=== PATIENT | male | born 1935 | race Hispanic/Latino ===

== ENCOUNTER 2019-02-25 13:44 | Observation (INO) | payer MEDICARE ==
--- NOTE | 2019-02-25 14:27 | RAD ---
EXAM: Chest 2 views: HISTORY: Hypotension and cough COMPARISON: 06/10/2013 FINDINGS: There is a normal-sized cardiomediastinal silhouette. Increased interstitial markings are present. There is no evidence of consolidation, mass, or pleural effusion. The bones are unremarkable. IMPRESSION: No evidence of acute cardiopulmonary disease
[2019-02-25 14:41] LABS: #Eosinphils 0.1 thou/uL (0.0-0.7); #Lymphocytes 3.4 thou/uL (1.20-3.40); #Monocytes 1.1 thou/uL (0.11-0.59); %Basophils 0.3 % (0.0-1.0); %Eosinophils 0.9 % (0.0-10.0); %Lymphocytes 26.8 % (21.0-51.0); %Monocytes 8.7 % (0.0-10.0); %Neutrophils 63.4 % (42.0-75.0); Hemoglobin 13.9 g/dL (14.0-18.0); Mean Corpuscular HGB CONC 33.1 g/dL (32.0-36.0); Mean Corpuscular Hemoglobin 28.1 pg (27.0-31.0); Mean Corpuscular Volume 84.8 fL (78.0-98.0); Mean Platelet Volume 8.9 fL (7.4-10.4); Platelet Count 243 thou/uL (130-400); RBC Distribution Width 13.3 % (11.5-14.5); Red Blood Cell (RBC) Count 4.96 mill/uL (4.70-6.10); White Blood Cell (WBC) Count 12.6 thou/uL (4.8-10.8)
[2019-02-25 15:01] LABS: ALT (SGPT) 19 U/L (8-55); AST (SGOT) 30 U/L (5-34); Albumin 4.2 g/dL (3.4-4.8); Alkaline Phosphatase 85 U/L (40-150); Anion Gap 14 mmol/L (10-20); BUN (Urea Nitrogen) 46 mg/dL (8.4-25.7); Bilirubin, Total 0.6 mg/dL (0.2-1.2); Calc. Creatinine Clearance 0 mL/min (70-130); Calcium 9.8 mg/dL (7.8-10.44); Carbon Dioxide 25 mmol/L (23-31); Chloride 100 mmol/L (98-107); Estimated GFR-MDRD 25; Glucose 95 mg/dL (83-110); Potassium 4.5 mmol/L (3.5-5.1); Protein, Total 8.2 g/dL (5.8-8.1); Sodium 134 mmol/L (136-145)
[2019-02-25] MEDS ORDERED: Lidocaine Viscous Sol 2% 15 ml UD Cup ONE (15:48)
[2019-02-25] MEDS ORDERED: Mag-Al 1200 mg/1200 mg/30 ML UDCUP ONE (15:48)
[2019-02-25 16:21] LABS: Bacteria/HPF None Seen HPF (None Seen); Bilirubin Negative (Negative); Blood, Urine Negative (Negative); Clarity Turbid (Clear); Glucose, Urine (Dipstick) Normal (Negative); Leukocyte Negative Leu/uL (Negative); Nitrite Negative (Negative); Protein, Urine (Dipstick) 30 mg/dL (Neg-Trace); RBC/HPF 0-3 HPF (0-3); Squamous Epithelial 0-3 HPF (0-3); WBC/HPF 0-3 HPF (0-3)
[2019-02-25 16:27] LABS: Calcium Oxalate Crystals 1+ HPF (None Seen); Mucous/LPF 2+ LPF (<2+)
[2019-02-25] MEDS ORDERED: PROVENTIL INHALER 6.7 G (200 INHALATIONS) INH PRN (16:52)
[2019-02-25] MEDS ORDERED: cefTRIAXone\\ROCEPHIN 1 GM in Sodium Chloride 0.9% 100 ML IVPB SCH ×2 (18:00→21:00)
[2019-02-25 19:47] VITALS: BMI 21.9
[2019-02-25] MEDS: Sodium Chloride 0.9% 1,000 ML IV SCH (20:13)
--- NOTE | 2019-02-26 00:18 | HP ---
CHIEF COMPLAINT: Sore throat. HISTORY OF PRESENT ILLNESS: This patient is an 83-year-old male without significant past medical history other than hypertension and some chronic abnormalities on his lung exam, who presented via the emergency department. 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 He developed sore throat over the last couple of days and presented to work today, but ultimately decided he needed to leave, because of some irritation of his throat. He went home and checked his blood pressure and it was very low; however he says he does not necessarily trust his machine at this point. He subsequently presented to his provider's office where his pressure was in the 80s as well and ambulance was called to bring the patient to the emergency department. Here, the patient's blood pressure has actually been normal. He says he actually feels fine other than the sore throat. REVIEW OF SYSTEMS: All other systems reviewed, all pertinent positives and negatives noted in the history of present illness. Specifically, the patient denies any fevers, chills or shortness of breath. He reports that he has been eating and drinking well and continues to drink ample amounts of fluids every day. PAST MEDICAL HISTORY: Notable for hypertension. He also reports that he has had abnormal lung sounds for the past 60 years, primarily on the right side. He does report having pneumonia 6-7 months ago. PAST SURGICAL HISTORY: He has had cataractectomy. FAMILY HISTORY: Father about 15 years ago of an [place]. His mother when he was 6 and he believes she had TB. SOCIAL HISTORY: He drinks 2 to 3 beers per day. Denies tobacco or drugs. He is . He is full code. ALLERGIES: NONE. CURRENT MEDICATIONS: 1. Lisinopril 20 mg daily. 2. Albuterol inhaler 2 puffs p.r.n. PHYSICAL EXAMINATION: VITAL SIGNS: Blood pressure is 134/64, pulse is 80, respirations 20, temperature is 97.8, O2 saturations 96% on room air. GENERAL APPEARANCE: Age-appropriate male in no distress. He is awake and alert, very pleasant and cooperative. HEENT: LAWANDA. 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 Has no OP lesions. NECK: Supple and symmetric without lymphadenopathy, JVD, or carotid bruits. HEART: Regular rate and rhythm without murmurs, gallops, or rubs. LUNGS: Clear to auscultation bilaterally with good chest wall expansion and air exchange. ABDOMEN: Soft, nontender, and nondistended. Positive bowel sounds. No masses. No organomegaly. EXTREMITIES: No cyanosis, clubbing, or edema. NEUROLOGIC: Intact with no focal deficits. PSYCHIATRIC: Normal affect and behavior. LABORATORY DATA: White count 12.6, hemoglobin 13.9, platelets 243, normal differential. Sodium 134, potassium 4.5, chloride 100, CO2 of 25, BUN 46, creatinine is 2.45, glucose 95, lactic acid 0.9, calcium 9.8. LFTs normal. Albumin is 4.2. Urinalysis shows a specific gravity of 1.021 with trace protein, 1+ calcium oxalate crystals, some hyaline casts greater than 50 noted and some mucus. IMAGING: Chest x-ray is negative. EKG is negative. IMPRESSION AND PLAN: 1. Acute renal failure, unclear etiology, but certainly concerning. The patient may have had some acute tubular necrosis given the extent of the hyaline casts that are present. He is unaware of having any prior renal problems. We have no prior labs for comparison. The patient was in the hospital 6 to 7 months ago and apparently was not told anything at that time about any renal issues. We will hydrate him today and recheck these values in the morning. It is possible he has just been suffering from some chronic dehydration working outside in the extreme heat. 2. Abnormal lung exam. The patient has rales on the right side, which are fairly prominent; however, he is adamant that this has been the case for decades and has not been problematic for him. He does have an inhaler, but does not think he has ever been diagnosed with asthma, but does not really think he has chronic obstructive pulmonary disease either. He has never been a smoker. We will repeat the chest x-ray in the morning after hydration just to ensure there is not something more going on. 3. History of hypertension, holding his lisinopril in light of his renal function and the hypotensive episode this morning. 4. Hypotension was fully resolved prior to arriving in the emergency department, not clear what changed, the patient feels fine. His pressures been stable here in the ER. He is given some fluids. We will hold his antihypertensives and continue to monitor. 5. Mild pharyngitis. Given the episode of the hypotension today and the modest elevation of his white blood cell count, we will go ahead and cover him with some antibiotics. Job ID: [id number]
[2019-02-26] MEDS: Sodium Chloride 0.9% 1,000 ML IV SCH (06:04)
[2019-02-26 08:10] LABS: #Eosinphils 0.1 thou/uL (0.0-0.7); #Lymphocytes 2.4 thou/uL (1.20-3.40); #Monocytes 0.7 thou/uL (0.11-0.59); #Neutrophils 4.5 thou/uL (1.40-6.50); %Basophils 0.6 % (0.0-1.0); %Eosinophils 1.8 % (0.0-10.0); %Lymphocytes 31.1 % (21.0-51.0); %Monocytes 8.9 % (0.0-10.0); %Neutrophils 57.6 % (42.0-75.0); Hemoglobin 12.6 g/dL (14.0-18.0); Mean Corpuscular Hemoglobin 28.1 pg (27.0-31.0); Mean Corpuscular Volume 85.1 fL (78.0-98.0); Mean Platelet Volume 8.4 fL (7.4-10.4); Platelet Count 199 thou/uL (130-400); RBC Distribution Width 13.3 % (11.5-14.5); Red Blood Cell (RBC) Count 4.49 mill/uL (4.70-6.10); White Blood Cell (WBC) Count 7.8 thou/uL (4.8-10.8)
[2019-02-26 08:38] LABS: Anion Gap 8 mmol/L (10-20); BUN (Urea Nitrogen) 24 mg/dL (8.4-25.7); Calc. Creatinine Clearance 54 mL/min (70-130); Calcium 8.8 mg/dL (7.8-10.44); Carbon Dioxide 27 mmol/L (23-31); Chloride 105 mmol/L (98-107); Estimated GFR-MDRD 83; Glucose 99 mg/dL (83-110); Potassium 4.8 mmol/L (3.5-5.1); Sodium 135 mmol/L (136-145)
[2019-02-26] MEDS ORDERED: PROVENTIL INHALER 6.7 G (200 INHALATIONS) INH PRN (09:33)
--- NOTE | 2019-02-26 10:05 | RAD ---
PA AND LATERAL CHEST: Date: 02/26/19 HISTORY: Rales in right lung base. COMPARISON: Prior day's study. FINDINGS: Heart size within normal limits. There are atherosclerotic changes of the aorta. 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 No confluent infiltrative process. IMPRESSION: Chronic lung change. Stable chest. POS: [facility]
[2019-02-26 10:45] VITALS: BP 144/63; TEMP 98.1
--- NOTE | 2019-02-27 03:02 | DIS ---
DATE OF ADMISSION: 02/25/2019 DATE OF DISCHARGE: 02/26/2019 DISCHARGE DIAGNOSES: As of the following; 1. Acute kidney injury. 2. Sore throat. 3. Abnormal lung exam. HOSPITAL COURSE: The patient is a very pleasant 83-year-old male, with no significant past medical history other than just hypertension, who presented to the hospital with complaints of sore throat. 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 The patient states that he has been having some irritation of his throat for the past few days and when he went home his checked his blood pressure, his blood pressure was found to be low, so he came into the hospital for further evaluation. In the ER, his blood pressure was stable; however, he was found to have an elevated creatinine. The patient's creatinine was 2.45. He was resuscitated with IV hydration. His creatinine on discharge was 0.88. His BNP was 84. Troponin x1 was negative. The patient stated he felt really well. His sore throat had improved. He also had given him antibiotics. PHYSICAL EXAMINATION: VITAL SIGNS: Temperature 98.1, 60, 20, 144/63. GENERAL: He is awake, alert, and oriented x3. Does not appear in any distress. HEENT: Normocephalic, atraumatic. Pupils are equal and reactive to light. Upon examination of the oropharynx, no erythema or swelling was noted. No lymphadenopathy noted. LUNGS: Clear upon auscultation of his bilateral lower lung areas. HOME MEDICATIONS: As of the following; 1. Norvasc 5 mg daily. 2. Keflex 500 mg b.i.d. 3. Multivitamin 1 p.o. daily. PLAN: I have told him to hold off on his lisinopril and we will recheck his lab work on Friday and in the meantime, he will use his Norvasc as needed if his blood pressure goes above 170. Also, asked him to follow up with his primary care doctor. I encouraged him to hydrate. If his symptoms of sore throat does not improve, he might need either ENT or GI. I have told the patient that if he has problems swallowing and continues to have more weight loss, he will need to follow up with GI and also with his primary care. Job ID: [id number]
== END 2019-02-26 11:06 | disposition home or self-care (01) ==
LOC: ERS 13:44 → T4-A 19:05
PROVIDERS: ADMIT Internal Medicine; ATTEND Internal Medicine
DX: N17.9 Acute kidney failure, unspecified (principal); J02.9 Acute pharyngitis, unspecified; I10 Essential (primary) hypertension; R09.89 Other specified symptoms and signs involving the circulatory and respiratory systems; Z79.899 Other long term (current) drug therapy
CPT/HCPCS: 71046 ×2; 80048; 80053; 83605; 83880; 84484; 85025 ×2; 93005; 96361 ×3; 96365; 99285; G0378 ×3; 36415; 81003; 81015; 96360; J0696; J3490

== ENCOUNTER 2022-04-15 09:56 | Inpatient (IN) | payer MEDICARE, OTHER ==
[2022-04-15 11:07] LABS: #Monocytes 1.5 thou/uL (0.11-0.59); #Neutrophils 14.3 thou/uL (1.40-6.50); %Lymphocytes 11.2 % (21.0-51.0); %Monocytes 8.2 % (0.0-10.0); %Neutrophils 80.5 % (42.0-75.0); Hemoglobin 12.7 g/dL (14.0-18.0); Mean Corpuscular HGB CONC 31.4 g/dL (32.0-36.0); Mean Corpuscular Hemoglobin 26.7 pg (27.0-31.0); Mean Corpuscular Volume 84.9 fL (78.0-98.0); Mean Platelet Volume 9.1 fL (7.4-10.4); Platelet Count 191 thou/uL (130-400); RBC Distribution Width 13.7 % (11.5-14.5); Red Blood Cell (RBC) Count 4.78 mill/uL (4.70-6.10); White Blood Cell (WBC) Count 17.7 thou/uL (4.8-10.8)
[2022-04-15 11:29] LABS: ALT (SGPT) 33 U/L (8-55); AST (SGOT) 168 U/L (5-34); Albumin 3.2 g/dL (3.4-4.8); Alkaline Phosphatase 87 U/L (40-110); Anion Gap 13 mmol/L (10-20); BUN (Urea Nitrogen) 23 mg/dL (8.4-25.7); Bilirubin, Total 0.5 mg/dL (0.2-1.2); Calc. Creatinine Clearance 0 mL/min (70-130); Calcium 8.4 mg/dL (7.8-10.44); Carbon Dioxide 24 mmol/L (23-31); Chloride 100 mmol/L (98-107); Estimated GFR 54; Globulin 4.5 g/dL (2.4-3.5); Glucose 100 mg/dL (83-110); Protein, Total 7.7 g/dL (5.8-8.1); Sodium 133 mmol/L (136-145)
[2022-04-15 11:44] LABS: Bilirubin Negative (Negative); Blood, Urine 3+ (Negative); Clarity Clear (Clear); Glucose, Urine (Dipstick) Normal (Negative); Ketone, Urine 20 mg/dL (Negative); Leukocyte Negative Leu/uL (Negative); Nitrite Negative (Negative); Protein, Urine (Dipstick) 70 mg/dL (Neg-Trace); RBC/HPF 0-3 HPF (0-3); Squamous Epithelial 0-3 HPF (0-3); Urobilinogen Normal mg/dL (Less than 2); WBC/HPF 0-3 HPF (0-3); pH, Urine 5.5 (5.0-9.0)
[2022-04-15 11:47] LABS: Bacteria/HPF 1+ HPF (None Seen)
[2022-04-15 12:14] LABS: SARS-CoV-2 NAA Rapid Test Not Detected (NotDetected)
[2022-04-15 12:32] LABS: CKMB 22.5 ng/mL (0-6.6)
[2022-04-15] MEDS ORDERED: Aspirin Chewable 81 MG TAB ONE (12:48)
[2022-04-15] MEDS ORDERED: cefTRIAXone\\ROCEPHIN 2 GM VIAL ONE (12:48)
[2022-04-15] MEDS ORDERED: Ondansetron PF 4 MG/2 ML Vial IVP PRN (13:29)
[2022-04-15] MEDS ORDERED: Nitroglycerin 0.4 MG TAB (25 Tab Bottle) SL PRN (13:29)
[2022-04-15] MEDS ORDERED: Azithromycin 500 MG VIAL ONE (13:32)
[2022-04-15] MEDS ORDERED: Heparin 10,000 UNITS/ 10 ML VIAL ONE (13:51)
[2022-04-15] MEDS ORDERED: Heparin 25,000 units/D5W 500 ML ONE (13:52)
[2022-04-15] MEDS ORDERED: Levalbuterol HCl 0.63 MG/3 ML NEB NEB PRN (13:57)
[2022-04-15 14:42] LABS: INR-International Normal Ratio 1.3; PTT 41.6 sec (22.9-36.1); Prothrombin Time 16.2 sec (12.0-14.7)
[2022-04-15 14:46] LABS: Magnesium 1.9 mg/dL (1.6-2.6)
[2022-04-15] MEDS ORDERED: Albuterol Sulfate 1.25 MG/3 ML NEB NEB PRN (14:48)
[2022-04-15 14:49] LABS: Critical Call Chem Troponin I RESULT DECREASING; Troponin I 29.086 ng/mL (< 0.028)
[2022-04-15 14:57] LABS: Hemoglobin 11.8 g/dL (14.0-18.0); Platelet Count 171 thou/uL (130-400)
[2022-04-15] MEDS ORDERED: Sodium Chloride 0.9% 1,000 ML IV SCH (15:15)
[2022-04-15 17:41] LABS: Troponin I 30.538 ng/mL (< 0.028)
[2022-04-15] MEDS: Heparin 10,000 UNITS/ 10 ML VIAL SLOW IVP SCH (22:28)
[2022-04-15] MEDS: guaiFENesin ER 600 MG TAB PO SCH (22:31)
[2022-04-15] MEDS: Atorvastatin Calcium 10 MG TAB PO SCH (22:31)
[2022-04-15] MEDS: Doxycycline 100 MG in Sodium Chloride 0.9% 100 ML IVPB SCH (22:32)
[2022-04-15 23:34] VITALS: BMI 21.9
[2022-04-16 00:01] LABS: Legionella Urinary Ag Negative (Negative); Strep pneumo Urine Ag NEGATIVE (NEGATIVE)
[2022-04-16 04:40] LABS: #Lymphocytes 3.3 thou/uL (1.20-3.40); #Monocytes 1.5 thou/uL (0.11-0.59); #Neutrophils 6.5 thou/uL (1.40-6.50); %Basophils 0.3 % (0.0-1.0); %Eosinophils 0.2 % (0.0-10.0); %Lymphocytes 29.1 % (21.0-51.0); %Monocytes 13.2 % (0.0-10.0); %Neutrophils 57.1 % (42.0-75.0); Hemoglobin 11.4 g/dL (14.0-18.0); Mean Corpuscular HGB CONC 31.5 g/dL (32.0-36.0); Mean Corpuscular Hemoglobin 26.9 pg (27.0-31.0); Mean Corpuscular Volume 85.5 fl (78.0-98.0); Mean Platelet Volume 9.5 fL (7.4-10.4); Platelet Count 149 thou/uL (130-400); RBC Distribution Width 13.7 % (11.5-14.5); Red Blood Cell (RBC) Count 4.23 mill/uL (4.70-6.10); White Blood Cell (WBC) Count 11.4 thou/uL (4.8-10.8)
[2022-04-16 05:10] LABS: Anion Gap 12 mmol/L (10-20); BUN (Urea Nitrogen) 17 mg/dL (8.4-25.7); Calc. Creatinine Clearance 54 mL/min (70-130); Carbon Dioxide 21 mmol/L (23-31); Chloride 104 mmol/L (98-107); Estimated GFR 86; Potassium 3.9 mmol/L (3.5-5.1); Sodium 133 mmol/L (136-145)
[2022-04-16 05:11] LABS: ALT (SGPT) 24 U/L (8-55); AST (SGOT) 108 U/L (5-34); Albumin 2.6 g/dL (3.4-4.8); Alkaline Phosphatase 74 U/L (40-110); Bilirubin, Total 0.4 mg/dL (0.2-1.2); Cardiac Risk 2.9 (Less than 4.5); Cholesterol 97 mg/dl (< 200 Desired); Globulin 3.6 g/dL (2.4-3.5); Glucose 99 mg/dL (83-110); HDL Cholesterol 33 mg/dL (>60 Neg Risk); LDL Cholesterol, Calculated 56 mg/dL; Protein, Total 6.2 g/dL (5.8-8.1); Triglycerides 40 mg/dL (Less than 150)
[2022-04-16] MEDS: Heparin 10,000 UNITS/ 10 ML VIAL SLOW IVP SCH (05:39)
[2022-04-16] MEDS ORDERED: FLU VACC QS2022-23(65YR UP)/PF 240 MCG/0.7 ML SYRINGE IM ONE (09:00)
[2022-04-16] MEDS: guaiFENesin ER 600 MG TAB PO SCH ×2 (09:08→20:26)
[2022-04-16] MEDS: Aspirin 325 mg Enteric Coated Tablet PO SCH (09:08)
[2022-04-16] MEDS: Acetaminophen 325 MG TAB PO PRN ×2 (09:55→20:26)
[2022-04-16] MEDS: Doxycycline 100 MG in Sodium Chloride 0.9% 100 ML IVPB SCH (10:28)
[2022-04-16] MEDS: cefTRIAXone\\ROCEPHIN 1 GM in Sodium Chloride 0.9% 100 ML IVPB SCH (15:15)
[2022-04-16] MEDS: Azithromycin 500 MG in Sodium Chloride 0.9% 250 ML 250 ML IVPB SCH (15:15)
[2022-04-16] MEDS: Lisinopril 10 MG TAB PO SCH (20:26)
[2022-04-16] MEDS: Atorvastatin Calcium 10 MG TAB PO SCH (20:26)
[2022-04-16] MEDS: Heparin 25,000 units/D5W 500 ML IVPB SCH (22:49)
[2022-04-17 04:54] LABS: #Lymphocytes 2.5 thou/uL (1.20-3.40); #Monocytes 1.1 thou/uL (0.11-0.59); #Neutrophils 5.7 thou/uL (1.40-6.50); %Monocytes 11.6 % (0.0-10.0); %Neutrophils 61.4 % (42.0-75.0); Hemoglobin 11.5 g/dL (14.0-18.0); Mean Corpuscular HGB CONC 31.2 g/dL (32.0-36.0); Mean Corpuscular Hemoglobin 26.7 pg (27.0-31.0); Mean Corpuscular Volume 85.4 fl (78.0-98.0); Platelet Count 142 thou/uL (130-400); RBC Distribution Width 13.8 % (11.5-14.5); Red Blood Cell (RBC) Count 4.32 mill/uL (4.70-6.10); White Blood Cell (WBC) Count 9.3 thou/uL (4.8-10.8)
[2022-04-17 05:17] LABS: ALT (SGPT) 24 U/L (8-55); AST (SGOT) 74 U/L (5-34); Albumin 2.6 g/dL (3.4-4.8); Alkaline Phosphatase 89 U/L (40-110); Anion Gap 10 mmol/L (10-20); BUN (Urea Nitrogen) 14 mg/dL (8.4-25.7); Bilirubin, Total 0.4 mg/dL (0.2-1.2); Calc. Creatinine Clearance 54 mL/min (70-130); Calcium 8.1 mg/dL (7.8-10.44); Carbon Dioxide 23 mmol/L (23-31); Chloride 104 mmol/L (98-107); Estimated GFR 86; Globulin 3.8 g/dL (2.4-3.5); Glucose 109 mg/dL (83-110); Potassium 3.8 mmol/L (3.5-5.1); Protein, Total 6.4 g/dL (5.8-8.1); Sodium 133 mmol/L (136-145)
[2022-04-17] MEDS: Acetaminophen 325 MG TAB PO PRN ×2 (07:45→21:29)
[2022-04-17] MEDS: Oseltamivir 75 MG CAP PO SCH ×2 (10:23→21:29)
[2022-04-17] MEDS: Aspirin 325 mg Enteric Coated Tablet PO SCH (10:23)
[2022-04-17] MEDS: guaiFENesin ER 600 MG TAB PO SCH ×2 (10:23→21:29)
[2022-04-17] MEDS: Lisinopril 10 MG TAB PO SCH ×2 (10:23→21:29)
[2022-04-17] MEDS: Azithromycin 500 MG in Sodium Chloride 0.9% 250 ML 250 ML IVPB SCH (15:20)
[2022-04-17] MEDS: cefTRIAXone\\ROCEPHIN 1 GM in Sodium Chloride 0.9% 100 ML IVPB SCH (15:20)
[2022-04-17] MEDS ORDERED: Furosemide 20 MG/2 ML VIAL SLOW IVP SCH (16:45)
[2022-04-17] MEDS: Carvedilol 3.125 MG TAB PO SCH (17:20)
[2022-04-17] MEDS: Atorvastatin Calcium 10 MG TAB PO SCH (21:29)
[2022-04-17] MEDS: Heparin 25,000 units/D5W 500 ML IVPB SCH (21:30)
[2022-04-18 03:23] LABS: #Lymphocytes 2.6 thou/uL (1.20-3.40); %Basophils 0.2 % (0.0-1.0); %Eosinophils 0.3 % (0.0-10.0); %Lymphocytes 30.1 % (21.0-51.0); %Monocytes 11.5 % (0.0-10.0); %Neutrophils 57.8 % (42.0-75.0); Hemoglobin 11.1 g/dL (14.0-18.0); Mean Corpuscular HGB CONC 32.1 g/dL (32.0-36.0); Mean Corpuscular Hemoglobin 27.6 pg (27.0-31.0); Mean Corpuscular Volume 86.1 fl (78.0-98.0); Mean Platelet Volume 9.1 fL (7.4-10.4); Platelet Count 140 thou/uL (130-400); RBC Distribution Width 13.7 % (11.5-14.5); White Blood Cell (WBC) Count 8.7 thou/uL (4.8-10.8)
[2022-04-18 03:41] LABS: PTT 127.9 sec (22.9-36.1)
[2022-04-18 03:42] LABS: Anion Gap 11 mmol/L (10-20); BUN (Urea Nitrogen) 16 mg/dL (8.4-25.7); Calc. Creatinine Clearance 54 mL/min (70-130); Carbon Dioxide 23 mmol/L (23-31); Chloride 100 mmol/L (98-107); Estimated GFR 86; Glucose 105 mg/dL (83-110); Magnesium 1.8 mg/dL (1.6-2.6); Potassium 3.5 mmol/L (3.5-5.1); Sodium 130 mmol/L (136-145)
[2022-04-18] MEDS ORDERED: Communication Order-Pharmacy FS SCH (08:30)
[2022-04-18] MEDS ORDERED: Potassium Chloride 20 MEQ TAB PO SCH (09:00)
[2022-04-18] MEDS: Oseltamivir 75 MG CAP PO SCH ×2 (09:42→21:15)
[2022-04-18] MEDS: Carvedilol 3.125 MG TAB PO SCH ×2 (09:42→17:22)
[2022-04-18] MEDS: Lisinopril 10 MG TAB PO SCH ×2 (09:42→21:15)
[2022-04-18] MEDS: Aspirin 325 mg Enteric Coated Tablet PO SCH (09:42)
[2022-04-18] MEDS: guaiFENesin ER 600 MG TAB PO SCH ×2 (09:42→21:18)
[2022-04-18] MEDS: Heparin 10,000 UNITS/ 10 ML VIAL SLOW IVP SCH (13:47)
[2022-04-18] MEDS: Azithromycin 500 MG in Sodium Chloride 0.9% 250 ML 250 ML IVPB SCH (13:48)
[2022-04-18] MEDS: cefTRIAXone\\ROCEPHIN 1 GM in Sodium Chloride 0.9% 100 ML IVPB SCH (13:48)
[2022-04-18] MEDS: Atorvastatin Calcium 10 MG TAB PO SCH (21:15)
[2022-04-19 04:57] LABS: #Eosinphils 0.1 thou/uL (0.0-0.7); #Lymphocytes 3.2 thou/uL (1.20-3.40); #Neutrophils 3.1 thou/uL (1.40-6.50); %Eosinophils 1.5 % (0.0-10.0); %Lymphocytes 43.6 % (21.0-51.0); %Neutrophils 41.9 % (42.0-75.0); Hemoglobin 10.6 g/dL (14.0-18.0); Mean Corpuscular HGB CONC 30.8 g/dL (32.0-36.0); Mean Corpuscular Hemoglobin 26.3 pg (27.0-31.0); Mean Corpuscular Volume 85.4 fl (78.0-98.0); Platelet Count 155 thou/uL (130-400); RBC Distribution Width 13.7 % (11.5-14.5); Red Blood Cell (RBC) Count 4.04 mill/uL (4.70-6.10); White Blood Cell (WBC) Count 7.4 thou/uL (4.8-10.8)
[2022-04-19 05:15] LABS: Anion Gap 10 mmol/L (10-20); BUN (Urea Nitrogen) 16 mg/dL (8.4-25.7); Calc. Creatinine Clearance 54 mL/min (70-130); Calcium 8.2 mg/dL (7.8-10.44); Carbon Dioxide 23 mmol/L (23-31); Chloride 101 mmol/L (98-107); Estimated GFR 86; Glucose 92 mg/dL (83-110); Potassium 3.8 mmol/L (3.5-5.1); Sodium 130 mmol/L (136-145)
[2022-04-19] MEDS ORDERED: Sodium Chloride 0.9% 1,000 ML IV SCH ×2 (06:00→09:31)
[2022-04-19] MEDS: Heparin 25,000 units/D5W 500 ML IVPB SCH (06:04)
[2022-04-19] MEDS ORDERED: Heparin 10,000 UNITS/ 10 ML VIAL ONE (07:35)
[2022-04-19] MEDS ORDERED: Midazolam HCl 2 mg/2 ml Vial ONE (07:35)
[2022-04-19] MEDS ORDERED: FENTANYL 50 MCG/ML 1 ML VIAL ONE (07:35)
[2022-04-19] MEDS ORDERED: Nitroglycerin 100MG/250ML BOT 0 ML ONE (07:35)
[2022-04-19] MEDS ORDERED: Lidocaine 1% (PF) 30 ML VIAL ONE (07:35)
[2022-04-19] MEDS ORDERED: Protamine Sulfate 50 MG/5 ML VIAL ONE (09:20)
[2022-04-19] MEDS ORDERED: Sodium Chloride 0.9% 200 ML IV PRN (09:29)
[2022-04-19] MEDS ORDERED: Acetaminophen/Codeine 30-300mg Tablet PO PRN ×2 (09:29)
[2022-04-19] MEDS ORDERED: Nitroglycerin 0.4 MG TAB (25 Tab Bottle) SL PRN (09:29)
[2022-04-19] MEDS ORDERED: Communication Order-Pharmacy FS SCH ×2 (09:31→09:34)
[2022-04-19] MEDS ORDERED: Iopamidol 370 76% 100 ML VIAL ONE (09:53)
[2022-04-19] MEDS: Aspirin 325 mg Enteric Coated Tablet PO SCH (10:24)
[2022-04-19] MEDS: guaiFENesin ER 600 MG TAB PO SCH ×2 (10:24→21:43)
[2022-04-19] MEDS: Lisinopril 10 MG TAB PO SCH ×2 (10:24→21:43)
[2022-04-19] MEDS: Oseltamivir 75 MG CAP PO SCH ×2 (10:25→21:43)
[2022-04-19] MEDS: Carvedilol 3.125 MG TAB PO SCH ×2 (10:35→17:19)
[2022-04-19 10:40] LABS: Hemoglobin 11.6 g/dL (14.0-18.0); Platelet Count 163 thou/uL (130-400)
[2022-04-19] MEDS: Azithromycin 500 MG in Sodium Chloride 0.9% 250 ML 250 ML IVPB SCH (13:07)
[2022-04-19] MEDS: cefTRIAXone\\ROCEPHIN 1 GM in Sodium Chloride 0.9% 100 ML IVPB SCH (13:13)
[2022-04-19] MEDS ORDERED: Magnesium 2 GM/50 ML(in water) 2 GM in Premix Bag 1 BAG IVPB SCH (18:00)
[2022-04-19] MEDS ORDERED: Potassium Chloride 20 MEQ TAB PO SCH (18:00)
[2022-04-19] MEDS: Nitroglycerin 2% Ointment 1 INCH/1 GM Packet TOP SCH (21:43)
[2022-04-19] MEDS: Atorvastatin Calcium 10 MG TAB PO SCH (21:43)
[2022-04-20] MEDS ORDERED: Piperacillin/Tazobactam 3.375 GM in Sodium Chloride 0.9% 100 ML IVPB SCH (02:00)
[2022-04-20 04:50] LABS: #Eosinphils 0.1 thou/uL (0.0-0.7); #Lymphocytes 2.7 thou/uL (1.20-3.40); #Neutrophils 3.5 thou/uL (1.40-6.50); %Basophils 0.3 % (0.0-1.0); %Eosinophils 1.7 % (0.0-10.0); %Monocytes 13.9 % (0.0-10.0); %Neutrophils 47.1 % (42.0-75.0); Hemoglobin 10.9 g/dL (14.0-18.0); Mean Corpuscular HGB CONC 32.7 g/dL (32.0-36.0); Mean Corpuscular Volume 85.9 fl (78.0-98.0); Mean Platelet Volume 9.4 fL (7.4-10.4); Platelet Count 179 thou/uL (130-400); RBC Distribution Width 13.6 % (11.5-14.5); White Blood Cell (WBC) Count 7.3 thou/uL (4.8-10.8)
[2022-04-20 05:16] LABS: ALT (SGPT) 23 U/L (8-55); AST (SGOT) 51 U/L (5-34); Albumin 2.4 g/dL (3.4-4.8); Alkaline Phosphatase 100 U/L (40-110); Anion Gap 10 mmol/L (10-20); BUN (Urea Nitrogen) 18 mg/dL (8.4-25.7); Bilirubin, Total 0.2 mg/dL (0.2-1.2); Calc. Creatinine Clearance 48 mL/min (70-130); Carbon Dioxide 22 mmol/L (23-31); Chloride 106 mmol/L (98-107); Estimated GFR 82; Globulin 3.6 g/dL (2.4-3.5); Glucose 90 mg/dL (83-110); Magnesium 2.2 mg/dL (1.6-2.6); Phosphorus 3.3 mg/dL (2.3-4.7); Potassium 4.5 mmol/L (3.5-5.1); Sodium 133 mmol/L (136-145)
[2022-04-20] MEDS: Piperacillin/Tazobactam 3.375 GM in Sodium Chloride 0.9% 100 ML IVPB SCH ×3 (06:32→21:01)
[2022-04-20] MEDS: Lisinopril 10 MG TAB PO SCH ×2 (10:52→20:57)
[2022-04-20] MEDS: Oseltamivir 75 MG CAP PO SCH ×2 (10:52→20:56)
[2022-04-20] MEDS: Carvedilol 3.125 MG TAB PO SCH ×2 (10:52→17:52)
[2022-04-20] MEDS: Nitroglycerin 2% Ointment 1 INCH/1 GM Packet TOP SCH ×2 (10:53→20:57)
[2022-04-20] MEDS: guaiFENesin ER 600 MG TAB PO SCH ×2 (10:53→20:57)
[2022-04-20] MEDS: Aspirin 325 mg Enteric Coated Tablet PO SCH (10:53)
[2022-04-20] MEDS: Saccharomyces boulardii 250 MG CAP PO SCH (10:53)
[2022-04-20] MEDS: Enoxaparin Sodium 60 MG/0.6 ML SYRINGE SC SCH ×2 (10:53→20:56)
[2022-04-20] MEDS: Atorvastatin Calcium 10 MG TAB PO SCH (20:56)
[2022-04-21 05:25] LABS: #Basophils 0.1 thou/uL (0.0-0.2); #Eosinphils 0.3 thou/uL (0.0-0.7); #Lymphocytes 2.6 thou/uL (1.20-3.40); #Monocytes 0.6 thou/uL (0.11-0.59); #Neutrophils 2.9 thou/uL (1.40-6.50); %Basophils 1.1 % (0.0-1.0); %Eosinophils 4.6 % (0.0-10.0); %Lymphocytes 40.7 % (21.0-51.0); %Monocytes 9.3 % (0.0-10.0); %Neutrophils 44.3 % (42.0-75.0); Hemoglobin 11.2 g/dL (14.0-18.0); Mean Corpuscular HGB CONC 32.8 g/dL (32.0-36.0); Mean Corpuscular Hemoglobin 27.9 pg (27.0-31.0); Mean Corpuscular Volume 85.2 fl (78.0-98.0); Mean Platelet Volume 9.5 fL (7.4-10.4); Platelet Count 189 thou/uL (130-400); RBC Distribution Width 13.6 % (11.5-14.5); Red Blood Cell (RBC) Count 4.02 mill/uL (4.70-6.10); White Blood Cell (WBC) Count 6.4 thou/uL (4.8-10.8)
[2022-04-21] MEDS: Piperacillin/Tazobactam 3.375 GM in Sodium Chloride 0.9% 100 ML IVPB SCH ×3 (05:32→22:27)
[2022-04-21 05:47] LABS: ALT (SGPT) 23 U/L (8-55); AST (SGOT) 54 U/L (5-34); Albumin 2.3 g/dL (3.4-4.8); Alkaline Phosphatase 100 U/L (40-110); Anion Gap 14 mmol/L (10-20); BUN (Urea Nitrogen) 18 mg/dL (8.4-25.7); Bilirubin, Total 0.3 mg/dL (0.2-1.2); Calc. Creatinine Clearance 44 mL/min (70-130); Calcium 8.1 mg/dL (7.8-10.44); Carbon Dioxide 19 mmol/L (23-31); Chloride 105 mmol/L (98-107); Estimated GFR 74; Globulin 3.7 g/dL (2.4-3.5); Glucose 87 mg/dL (83-110); Magnesium 2.1 mg/dL (1.6-2.6); Phosphorus 4.1 mg/dL (2.3-4.7); Potassium 4.2 mmol/L (3.5-5.1); Sodium 134 mmol/L (136-145)
[2022-04-21] MEDS: Carvedilol 3.125 MG TAB PO SCH ×2 (08:15→17:50)
[2022-04-21] MEDS: Enoxaparin Sodium 60 MG/0.6 ML SYRINGE SC SCH (08:15)
[2022-04-21] MEDS: Aspirin 325 mg Enteric Coated Tablet PO SCH (08:15)
[2022-04-21] MEDS: Lisinopril 10 MG TAB PO SCH ×2 (08:16→20:50)
[2022-04-21] MEDS: guaiFENesin ER 600 MG TAB PO SCH ×2 (08:16→20:51)
[2022-04-21] MEDS: Oseltamivir 75 MG CAP PO SCH ×2 (08:16→20:50)
[2022-04-21] MEDS: Saccharomyces boulardii 250 MG CAP PO SCH (08:16)
[2022-04-21] MEDS: Nitroglycerin 2% Ointment 1 INCH/1 GM Packet TOP SCH ×2 (08:16→20:49)
[2022-04-21] MEDS: Atorvastatin Calcium 10 MG TAB PO SCH (20:51)
[2022-04-22 04:51] LABS: #Eosinphils 0.3 thou/uL (0.0-0.7); #Lymphocytes 2.4 thou/uL (1.20-3.40); #Monocytes 0.6 thou/uL (0.11-0.59); #Neutrophils 2.7 thou/uL (1.40-6.50); %Basophils 0.5 % (0.0-1.0); %Eosinophils 5.4 % (0.0-10.0); %Lymphocytes 39.6 % (21.0-51.0); %Monocytes 9.6 % (0.0-10.0); Hemoglobin 11.3 g/dL (14.0-18.0); Mean Corpuscular HGB CONC 32.2 g/dL (32.0-36.0); Mean Corpuscular Hemoglobin 27.7 pg (27.0-31.0); Mean Corpuscular Volume 85.8 fl (78.0-98.0); Mean Platelet Volume 8.5 fL (7.4-10.4); Platelet Count 234 thou/uL (130-400); RBC Distribution Width 13.6 % (11.5-14.5); Red Blood Cell (RBC) Count 4.09 mill/uL (4.70-6.10); White Blood Cell (WBC) Count 6.1 thou/uL (4.8-10.8)
[2022-04-22] MEDS: Lisinopril 10 MG TAB PO SCH (04:56)
[2022-04-22] MEDS: Carvedilol 3.125 MG TAB PO SCH (04:56)
[2022-04-22 05:05] LABS: ALT (SGPT) 23 U/L (8-55); AST (SGOT) 47 U/L (5-34); Albumin 2.5 g/dL (3.4-4.8); Alkaline Phosphatase 99 U/L (40-110); Anion Gap 11 mmol/L (10-20); BUN (Urea Nitrogen) 10 mg/dL (8.4-25.7); Bilirubin, Total 0.3 mg/dL (0.2-1.2); Calc. Creatinine Clearance 55 mL/min (70-130); Calcium 8.4 mg/dL (7.8-10.44); Carbon Dioxide 21 mmol/L (23-31); Chloride 108 mmol/L (98-107); Estimated GFR 85; Glucose 86 mg/dL (83-110); Potassium 4.2 mmol/L (3.5-5.1); Protein, Total 6.5 g/dL (5.8-8.1); Sodium 136 mmol/L (136-145)
[2022-04-22] MEDS: Piperacillin/Tazobactam 3.375 GM in Sodium Chloride 0.9% 100 ML IVPB SCH ×3 (06:08→22:53)
[2022-04-22] MEDS ORDERED: fentaNYL PF 100 MCG/2 ML SYRINGE ONE (06:12)
[2022-04-22] MEDS ORDERED: Rocuronium Bromide 50 MG/5 ML VIAL ONE (06:13)
[2022-04-22] MEDS ORDERED: Dexmedetomidine 200 MCG/2 ML VIAL ONE (06:13)
[2022-04-22] MEDS ORDERED: Insulin Regular 300 UNITS/3 ML VIAL ONE (06:13)
[2022-04-22] MEDS ORDERED: niCARdipine 25 MG/10 ML VIAL ONE (06:13)
[2022-04-22] MEDS ORDERED: Albumin 5% 250 ML ONE (06:13)
[2022-04-22] MEDS ORDERED: SUGAMMADEX SODIUM 200 MG/2 ML VIAL ONE (06:13)
[2022-04-22] MEDS ORDERED: Midazolam HCl 5 mg/5 ml Vial ONE (06:13)
[2022-04-22] MEDS ORDERED: Heparin 10,000 UNITS/1 ML VIAL 30,000 UNITS in Sodium Chloride 0.9% 1,000 ML FS SCH (07:15)
[2022-04-22] MEDS ORDERED: CEFAZOLIN 2 GM VIAL ONE (07:18)
[2022-04-22] MEDS ORDERED: Sodium Chloride 0.9% 0 ML ONE (07:18)
[2022-04-22] MEDS ORDERED: Thrombin 5000 UNITS/5 ML VIAL ONE (07:33)
[2022-04-22] MEDS ORDERED: Magnesium Sulfate 1 GM/2 ML VIAL ONE (07:33)
[2022-04-22] MEDS ORDERED: PROPOFOL 200 MG/20 ML VIAL ONE (07:33)
[2022-04-22] MEDS ORDERED: Protamine Sulfate 250 MG/25 ML VIAL ONE (07:33)
[2022-04-22] MEDS ORDERED: Norepinephrine 4 MG/4 ML VIAL ONE (07:33)
[2022-04-22] MEDS ORDERED: Papaverine 60 MG/2 ML VIAL ONE (07:33)
[2022-04-22] MEDS ORDERED: Mannitol 12.5 GM/50 ML ONE (07:33)
[2022-04-22] MEDS ORDERED: Cardioplegic Soln 1,000 ML BAG ONE (07:33)
[2022-04-22] MEDS ORDERED: Heparin 30,000 units/30 ml VIAL ONE (07:33)
[2022-04-22] MEDS ORDERED: Rocuronium Bromide 10 MG/ML (10ML VIAL) ONE (07:33)
[2022-04-22] MEDS ORDERED: Aminocaproic Acid 5 GM/20 ML VIAL ONE (07:33)
[2022-04-22] MEDS ORDERED: Sodium Bicarb 50 MEQ/50 ML Abboject 8.4% SYRINGE ONE ×2 (07:33)
[2022-04-22] MEDS ORDERED: Calcium Chloride 1 GM/10 ML Abboject SYRINGE ONE (07:33)
[2022-04-22] MEDS ORDERED: Lidocaine 2% PF 100 mg/5 ml Syringe ONE (07:33)
[2022-04-22] MEDS ORDERED: Heparin 5,000 UNITS/ML VIAL ONE (07:33)
[2022-04-22] MEDS ORDERED: Phenylephrine 10 MG/ML VIAL ONE (09:10)
[2022-04-22] MEDS ORDERED: PHENYLEPHRINE-NS 100 MCG/ML 10 ML SYRINGE ONE ×2 (09:10→09:56)
[2022-04-22] MEDS: Nitroglycerin 2% Ointment 1 INCH/1 GM Packet TOP SCH (10:45)
[2022-04-22] MEDS: Aspirin 325 mg Enteric Coated Tablet PO SCH (10:45)
[2022-04-22] MEDS: guaiFENesin ER 600 MG TAB PO SCH (10:45)
[2022-04-22] MEDS: Saccharomyces boulardii 250 MG CAP PO SCH (10:46)
[2022-04-22] MEDS ORDERED: NOREPINEPHRINE 8 MG/250 ML-D5W 250 ML ONE (11:29)
[2022-04-22 11:33] LABS: Actual Bicarbonate (HCO3a) 20.3 mEq/L (22-28); Base Excess (BEa) -4.5 mEq/L (-2.0 to +3.0); CO2 Tension 36.8 mmHg (35.0-45.0); Calcium, Ionized (arterial) 1.09 mmol/L (1.12-1.30); Carboxyhemoglobin (COHb) 0.1 gm% (0.0-3.0); Hemoglobin (Hb) 12.1 g/dL (14.0-18.0); O2 Tension (PaO2), arterial 308.8 mmHg (> 60.0); Potassium - ABG Lab 4.24 mmol/L (3.70-5.30); pH, Arterial 7.36 (7.35-7.45)
[2022-04-22 11:35] LABS: Puncture Site Arterial Line
[2022-04-22] MEDS ORDERED: niCARdipine 25 MG in Sodium Chloride 0.9% 250 ML 250 ML IVPB PRN (11:38)
[2022-04-22] MEDS ORDERED: Morphine 2 MG/ML VIAL SLOW IVP PRN (11:38)
[2022-04-22] MEDS ORDERED: Bisacodyl 5 MG TAB PO PRN (11:38)
[2022-04-22] MEDS ORDERED: Hetastarch 6% 500 ML 500 ML IVPB PRN (11:38)
[2022-04-22] MEDS ORDERED: Promethazine HCl 25 MG/ML VIAL IM PRN (11:38)
[2022-04-22] MEDS ORDERED: Post-Op Insulin Drip Protocol IVPB ONE (11:38)
[2022-04-22] MEDS ORDERED: Bisacodyl 10 MG SUPP PR PRN (11:38)
[2022-04-22] MEDS ORDERED: Potassium Chloride 20 MEQ/100 ML PREMIX BAG IVPB PRN (11:38)
[2022-04-22] MEDS ORDERED: Guaifenesin DM 100-10/5 ML UDCUP PO PRN (11:38)
[2022-04-22] MEDS ORDERED: Ondansetron PF 4 MG/2 ML Vial IVP PRN (11:38)
[2022-04-22] MEDS ORDERED: hydrALAZINE 20 MG/ML VIAL SLOW IVP PRN (11:38)
[2022-04-22] MEDS ORDERED: DOPamine 400 MG/D5W 250 ML 250 ML IVPB PRN (11:38)
[2022-04-22] MEDS ORDERED: HYDROcodone/Acetaminophen 5/325 mg Tablet PO PRN (11:38)
[2022-04-22] MEDS ORDERED: NOREPINEPHRINE 8 MG/250 ML-D5W 250 ML IVPB PRN (11:38)
[2022-04-22] MEDS ORDERED: FENTANYL 50 MCG/ML 1 ML VIAL SLOW IVP PRN ×2 (11:38)
[2022-04-22] MEDS ORDERED: Mag-Al 1200 mg/1200 mg/30 ML UDCUP PO PRN (11:38)
[2022-04-22] MEDS ORDERED: Acetaminophen 325 MG TAB PO PRN (11:38)
[2022-04-22] MEDS ORDERED: Nitroglycerin 50 MG/250 ML BOT 250 ML IVPB PRN (11:38)
[2022-04-22] MEDS: Lactated Ringer's 1,000 ML IV SCH (12:09)
[2022-04-22] MEDS: Ketorolac Tromethamine 30 MG/ML VIAL IVP SCH ×2 (12:11→17:02)
[2022-04-22 12:13] LABS: INR-International Normal Ratio 1.5; PTT 34.9 sec (22.9-36.1); Prothrombin Time 18.6 sec (12.0-14.7)
[2022-04-22] MEDS ORDERED: Dextrose 5% in Water 1,000 ML IV PRN (12:15)
[2022-04-22] MEDS ORDERED: Dextrose 50% Abboject 50 ML SYRINGE SLOW IVP PRN (12:15)
[2022-04-22] MEDS ORDERED: Insulin Regular 300 UNITS/3 ML VIAL SC PRN (12:15)
[2022-04-22] MEDS ORDERED: HUMULIN R 100 UNITS in Sodium Chloride 0.9% 100 ML IVPB SCH (12:15)
[2022-04-22 12:17] LABS: Anion Gap 11 mmol/L (10-20); BUN (Urea Nitrogen) 9 mg/dL (8.4-25.7); Calc. Creatinine Clearance 72 mL/min (70-130); Carbon Dioxide 18 mmol/L (23-31); Chloride 114 mmol/L (98-107); Estimated GFR 92; Glucose 122 mg/dL (83-110); Potassium 4.4 mmol/L (3.5-5.1); Sodium 139 mmol/L (136-145)
[2022-04-22 12:41] LABS: Hemoglobin 11.4 g/dL (14.0-18.0); Mean Corpuscular HGB CONC 31.9 g/dL (32.0-36.0); Mean Corpuscular Hemoglobin 27.2 pg (27.0-31.0); Mean Corpuscular Volume 85.2 fl (78.0-98.0); Mean Platelet Volume 9.2 fL (7.4-10.4); Platelet Count 164 thou/uL (130-400); RBC Distribution Width 13.4 % (11.5-14.5); White Blood Cell (WBC) Count 27.7 thou/uL (4.8-10.8)
[2022-04-22 13:04] LABS: Band 13 % (5-11); Eosinophils 2 % (0-10); Lymphocytes 4 % (21-51); MDiff Complete? YES; Metamyelocyte 1 % (0-0); Monocytes 6 % (0-10); Myelocyte 1 % (0-0); Neutrophil 73 % (42-75); Platelet Morphology Comment Appears Adequate; Polychromasia SLIGHT = 2-3 cells (100X) (0-2/hpf)
[2022-04-22 17:27] LABS: Potassium 4.7 mmol/L (3.5-5.1)
[2022-04-22] MEDS: Famotidine/PF 20 mg/2ml Vial SLOW IVP SCH (20:21)
[2022-04-22] MEDS: Atorvastatin Calcium 10 MG TAB PO SCH (22:52)
[2022-04-23] MEDS: Ketorolac Tromethamine 30 MG/ML VIAL IVP SCH ×2 (00:46→05:46)
[2022-04-23] MEDS: Lactated Ringer's 1,000 ML IV SCH ×3 (00:49→21:36)
[2022-04-23 04:44] LABS: #Lymphocytes 1.8 thou/uL (1.20-3.40); #Monocytes 1.3 thou/uL (0.11-0.59); #Neutrophils 8.7 thou/uL (1.40-6.50); %Basophils 0.1 % (0.0-1.0); %Eosinophils 0.4 % (0.0-10.0); %Lymphocytes 15.1 % (21.0-51.0); %Monocytes 11.2 % (0.0-10.0); %Neutrophils 73.2 % (42.0-75.0); Hemoglobin 9.9 g/dL (14.0-18.0); Mean Corpuscular HGB CONC 31.9 g/dL (32.0-36.0); Mean Corpuscular Hemoglobin 27.4 pg (27.0-31.0); Mean Corpuscular Volume 85.8 fl (78.0-98.0); Mean Platelet Volume 8.9 fL (7.4-10.4); Platelet Count 155 thou/uL (130-400); RBC Distribution Width 13.8 % (11.5-14.5); Red Blood Cell (RBC) Count 3.61 mill/uL (4.70-6.10); White Blood Cell (WBC) Count 11.8 thou/uL (4.8-10.8)
[2022-04-23 05:09] LABS: Phosphorus 4.8 mg/dL (2.3-4.7)
[2022-04-23 05:12] LABS: ALT (SGPT) 16 U/L (8-55); AST (SGOT) 32 U/L (5-34); Albumin 2.4 g/dL (3.4-4.8); Alkaline Phosphatase 52 U/L (40-110); Anion Gap 11 mmol/L (10-20); BUN (Urea Nitrogen) 13 mg/dL (8.4-25.7); Bilirubin, Total 0.5 mg/dL (0.2-1.2); Calc. Creatinine Clearance 48 mL/min (70-130); Calcium 7.4 mg/dL (7.8-10.44); Carbon Dioxide 20 mmol/L (23-31); Chloride 115 mmol/L (98-107); Estimated GFR 76; Globulin 2.3 g/dL (2.4-3.5); Glucose 108 mg/dL (83-110); Magnesium 2.2 mg/dL (1.6-2.6); Potassium 4.6 mmol/L (3.5-5.1); Protein, Total 4.7 g/dL (5.8-8.1); Sodium 141 mmol/L (136-145)
[2022-04-23] MEDS: Piperacillin/Tazobactam 3.375 GM in Sodium Chloride 0.9% 100 ML IVPB SCH ×3 (05:46→21:30)
[2022-04-23 08:03] LABS: Actual Bicarbonate (HCO3a) 18.8 mEq/L (22-28); Base Excess (BEa) -6.1 mEq/L (-2.0 to +3.0); Calcium, Ionized (arterial) 1.14 mmol/L (1.12-1.30); Carboxyhemoglobin (COHb) 0.3 gm% (0.0-3.0); Hemoglobin (Hb) 10.5 g/dL (14.0-18.0); O2 Tension (PaO2), arterial 139.1 mmHg (> 60.0); Potassium - ABG Lab 4.49 mmol/L (3.70-5.30); pH, Arterial 7.35 (7.35-7.45)
[2022-04-23 08:14] LABS: Puncture Site Arterial Line
[2022-04-23] MEDS: Famotidine/PF 20 mg/2ml Vial SLOW IVP SCH ×2 (08:28→21:30)
[2022-04-23] MEDS: Aspirin Chewable 81 MG TAB PO SCH (08:28)
[2022-04-23] MEDS: Polyethylene Glycol 3350 17 GM Packet PO SCH (08:28)
[2022-04-23] MEDS ORDERED: Magnesium 2 GM/50 ML(in water) 2 GM in Premix Bag 1 BAG IVPB SCH (09:00)
[2022-04-23] MEDS ORDERED: Insulin Glargine 30 UNITS/0.3 ML VIAL SC PRN (12:09)
[2022-04-23] MEDS: Atorvastatin Calcium 10 MG TAB PO SCH (21:31)
[2022-04-23] MEDS: HYDROcodone/Acetaminophen 5/325 mg Tablet PO PRN (22:10)
[2022-04-24 04:16] LABS: #Basophils 0.1 thou/uL (0.0-0.2); #Eosinphils 0.1 thou/uL (0.0-0.7); #Lymphocytes 1.9 thou/uL (1.20-3.40); #Monocytes 1.9 thou/uL (0.11-0.59); %Basophils 0.4 % (0.0-1.0); %Eosinophils 0.4 % (0.0-10.0); %Lymphocytes 12.5 % (21.0-51.0); %Monocytes 12.6 % (0.0-10.0); %Neutrophils 74.1 % (42.0-75.0); Hemoglobin 10.3 g/dL (14.0-18.0); Mean Corpuscular HGB CONC 31.3 g/dL (32.0-36.0); Mean Corpuscular Volume 86.3 fl (78.0-98.0); Mean Platelet Volume 8.7 fL (7.4-10.4); Platelet Count 167 thou/uL (130-400); Red Blood Cell (RBC) Count 3.83 mill/uL (4.70-6.10); White Blood Cell (WBC) Count 14.9 thou/uL (4.8-10.8)
[2022-04-24 04:46] LABS: ALT (SGPT) 15 U/L (8-55); AST (SGOT) 26 U/L (5-34); Albumin 2.4 g/dL (3.4-4.8); Alkaline Phosphatase 57 U/L (40-110); Anion Gap 7 mmol/L (10-20); BUN (Urea Nitrogen) 10 mg/dL (8.4-25.7); Bilirubin, Total 0.6 mg/dL (0.2-1.2); Calc. Creatinine Clearance 63 mL/min (70-130); Calcium 7.7 mg/dL (7.8-10.44); Carbon Dioxide 24 mmol/L (23-31); Chloride 110 mmol/L (98-107); Estimated GFR 88; Globulin 2.7 g/dL (2.4-3.5); Glucose 126 mg/dL (83-110); Magnesium 2.2 mg/dL (1.6-2.6); Potassium 4.3 mmol/L (3.5-5.1); Protein, Total 5.1 g/dL (5.8-8.1); Sodium 137 mmol/L (136-145)
[2022-04-24 04:52] LABS: Phosphorus 2.1 mg/dL (2.3-4.7)
[2022-04-24] MEDS: HYDROcodone/Acetaminophen 5/325 mg Tablet PO PRN ×2 (05:17→14:14)
[2022-04-24] MEDS: Piperacillin/Tazobactam 3.375 GM in Sodium Chloride 0.9% 100 ML IVPB SCH ×3 (05:32→22:19)
[2022-04-24] MEDS ORDERED: Milk Of Magnesia 30 ML UDCUP PO PRN (07:43)
[2022-04-24] MEDS ORDERED: Nitroglycerin 0.4 MG TAB (25 Tab Bottle) SL PRN (07:43)
[2022-04-24] MEDS: Potassium Chloride 10 MEQ TAB PO SCH (08:16)
[2022-04-24] MEDS: Polyethylene Glycol 3350 17 GM Packet PO SCH (08:16)
[2022-04-24] MEDS: Aspirin Chewable 81 MG TAB PO SCH (08:16)
[2022-04-24] MEDS: Famotidine 20 MG TAB PO SCH ×2 (08:16→20:57)
[2022-04-24] MEDS ORDERED: Furosemide 40 MG TAB PO SCH (09:00)
[2022-04-24] MEDS: Carvedilol 3.125 MG TAB PO SCH (17:48)
[2022-04-24] MEDS: Atorvastatin Calcium 10 MG TAB PO SCH (20:57)
[2022-04-24] MEDS: Heparin 5,000 UNITS/ML VIAL SC SCH (20:58)
[2022-04-25 04:48] LABS: #Eosinphils 0.1 thou/uL (0.0-0.7); #Lymphocytes 1.7 thou/uL (1.20-3.40); #Monocytes 1.4 thou/uL (0.11-0.59); #Neutrophils 10.3 thou/uL (1.40-6.50); %Eosinophils 0.5 % (0.0-10.0); %Lymphocytes 12.7 % (21.0-51.0); %Monocytes 10.4 % (0.0-10.0); %Neutrophils 76.4 % (42.0-75.0); Hemoglobin 10.6 g/dL (14.0-18.0); Mean Corpuscular HGB CONC 31.2 g/dL (32.0-36.0); Mean Corpuscular Hemoglobin 27.1 pg (27.0-31.0); Mean Corpuscular Volume 86.9 fl (78.0-98.0); Mean Platelet Volume 8.6 fL (7.4-10.4); Platelet Count 188 thou/uL (130-400); Red Blood Cell (RBC) Count 3.93 mill/uL (4.70-6.10); White Blood Cell (WBC) Count 13.5 thou/uL (4.8-10.8)
[2022-04-25 05:31] LABS: Anion Gap 10 mmol/L (10-20); BUN (Urea Nitrogen) 10 mg/dL (8.4-25.7); Calc. Creatinine Clearance 67 mL/min (70-130); Carbon Dioxide 25 mmol/L (23-31); Chloride 106 mmol/L (98-107); Estimated GFR 89; Glucose 103 mg/dL (83-110); Potassium 3.8 mmol/L (3.5-5.1); Sodium 137 mmol/L (136-145)
[2022-04-25] MEDS: Piperacillin/Tazobactam 3.375 GM in Sodium Chloride 0.9% 100 ML IVPB SCH ×3 (06:22→22:44)
[2022-04-25] MEDS: Heparin 5,000 UNITS/ML VIAL SC SCH ×2 (08:58→20:30)
[2022-04-25] MEDS: Furosemide 80 MG TAB PO SCH (09:02)
[2022-04-25] MEDS: Aspirin Chewable 81 MG TAB PO SCH (09:02)
[2022-04-25] MEDS: Potassium Chloride 10 MEQ TAB PO SCH (09:02)
[2022-04-25] MEDS: Famotidine 20 MG TAB PO SCH ×2 (09:02→20:29)
[2022-04-25] MEDS: Polyethylene Glycol 3350 17 GM Packet PO SCH (09:03)
[2022-04-25] MEDS: Carvedilol 3.125 MG TAB PO SCH (09:05)
[2022-04-25] MEDS ORDERED: PHOS-NAK 1 PKT PACK PO SCH (10:00)
[2022-04-25] MEDS ORDERED: Amiodarone 150 MG in Dextrose 5% in Water 100 ML IVPB SCH (11:30)
[2022-04-25] MEDS ORDERED: Digoxin 0.5 MG/2 ML AMP SLOW IVP SCH (11:30)
[2022-04-25] MEDS ORDERED: Digoxin 0.5 MG/2 ML AMP ONE (12:02)
[2022-04-25] MEDS: Amiodarone 450 MG in Dextrose 5% in Water 250 ML IVPB SCH (13:53)
[2022-04-25] MEDS: Carvedilol 6.25 MG TAB PO SCH (18:32)
[2022-04-25] MEDS: Atorvastatin Calcium 10 MG TAB PO SCH (20:29)
[2022-04-26] MEDS: Amiodarone 450 MG in Dextrose 5% in Water 250 ML IVPB SCH (00:51)
[2022-04-26 04:39] LABS: #Eosinphils 0.4 thou/uL (0.0-0.7); #Lymphocytes 2.5 thou/uL (1.20-3.40); #Monocytes 1.3 thou/uL (0.11-0.59); #Neutrophils 7.4 thou/uL (1.40-6.50); %Basophils 0.2 % (0.0-1.0); %Eosinophils 3.1 % (0.0-10.0); %Lymphocytes 21.6 % (21.0-51.0); %Monocytes 11.2 % (0.0-10.0); %Neutrophils 63.9 % (42.0-75.0); Hemoglobin 10.9 g/dL (14.0-18.0); Mean Corpuscular HGB CONC 31.8 g/dL (32.0-36.0); Mean Corpuscular Hemoglobin 27.8 pg (27.0-31.0); Mean Corpuscular Volume 87.5 fl (78.0-98.0); Mean Platelet Volume 8.8 fL (7.4-10.4); Platelet Count 246 thou/uL (130-400); RBC Distribution Width 14.1 % (11.5-14.5); Red Blood Cell (RBC) Count 3.92 mill/uL (4.70-6.10); White Blood Cell (WBC) Count 11.6 thou/uL (4.8-10.8)
[2022-04-26 04:44] LABS: Anion Gap 11 mmol/L (10-20); BUN (Urea Nitrogen) 16 mg/dL (8.4-25.7); Calc. Creatinine Clearance 48 mL/min (70-130); Calcium 7.8 mg/dL (7.8-10.44); Carbon Dioxide 24 mmol/L (23-31); Chloride 104 mmol/L (98-107); Estimated GFR 77; Glucose 107 mg/dL (83-110); Potassium 3.7 mmol/L (3.5-5.1); Sodium 135 mmol/L (136-145)
[2022-04-26] MEDS: Piperacillin/Tazobactam 3.375 GM in Sodium Chloride 0.9% 100 ML IVPB SCH ×3 (06:10→21:52)
[2022-04-26] MEDS ORDERED: Amiodarone 200 MG TAB PO SCH (09:45)
[2022-04-26] MEDS: Heparin 5,000 UNITS/ML VIAL SC SCH ×2 (09:53→21:53)
[2022-04-26] MEDS: Potassium Chloride 10 MEQ TAB PO SCH (09:53)
[2022-04-26] MEDS: Aspirin Chewable 81 MG TAB PO SCH (09:54)
[2022-04-26] MEDS: Carvedilol 6.25 MG TAB PO SCH ×2 (09:54→17:50)
[2022-04-26] MEDS: Furosemide 80 MG TAB PO SCH (09:55)
[2022-04-26] MEDS: Famotidine 20 MG TAB PO SCH ×2 (09:55→21:53)
[2022-04-26 10:13] LABS: Actual Bicarbonate (HCO3a) 21.4 mEq/L (22-28); Analyzer IN Cardio OR; Base Excess (BEa) -2.4 mEq/L (-2.0 to +3.0); CO2 Tension 33.3 mmHg (35.0-45.0); Calcium, Ionized (arterial) 1.12 mmol/L (1.12-1.30); Carboxyhemoglobin (COHb) 0.3 gm% (0.0-3.0); Hemoglobin (Hb) 10.7 g/dL (14.0-18.0); Potassium - ABG Lab 4.01 mmol/L (3.70-5.30); pH, Arterial 7.43 (7.35-7.45)
[2022-04-26 10:14] LABS: Actual Bicarbonate (HCO3a) 23.9 mEq/L (22-28); Analyzer IN Cardio OR; Base Excess (BEa) -3.6 mEq/L (-2.0 to +3.0); Calcium, Ionized (arterial) 1.18 mmol/L (1.12-1.30); Carboxyhemoglobin (COHb) 0.4 gm% (0.0-3.0); Hemoglobin (Hb) 7.5 g/dL (14.0-18.0); O2 Tension (PaO2), arterial 293.5 mmHg (> 60.0); Potassium - ABG Lab 4.69 mmol/L (3.70-5.30)
[2022-04-26 10:14] LABS: Actual Bicarbonate (HCO3a) 22.4 mEq/L (22-28); Analyzer IN Cardio OR; CO2 Tension 41.2 mmHg (35.0-45.0); Calcium, Ionized (arterial) 1.06 mmol/L (1.12-1.30); Carboxyhemoglobin (COHb) 0.3 gm% (0.0-3.0); Potassium - ABG Lab 3.95 mmol/L (3.70-5.30); pH, Arterial 7.35 (7.35-7.45)
[2022-04-26 10:14] LABS: Actual Bicarbonate (HCO3a) 23.1 mEq/L (22-28); Analyzer IN Cardio OR; Base Excess (BEa) -2.1 mEq/L (-2.0 to +3.0); Calcium, Ionized (arterial) 0.99 mmol/L (1.12-1.30); Carboxyhemoglobin (COHb) 0.8 gm% (0.0-3.0); Hemoglobin (Hb) 6.9 g/dL (14.0-18.0); O2 Tension (PaO2), arterial 429.5 mmHg (> 60.0); Potassium - ABG Lab 4.28 mmol/L (3.70-5.30); pH, Arterial 7.36 (7.35-7.45)
[2022-04-26 10:15] LABS: Actual Bicarbonate (HCO3a) 22.7 mEq/L (22-28); Analyzer IN Cardio OR; Base Excess (BEa) -1.7 mEq/L (-2.0 to +3.0); CO2 Tension 36.3 mmHg (35.0-45.0); Calcium, Ionized (arterial) 1.09 mmol/L (1.12-1.30); Carboxyhemoglobin (COHb) 0.6 gm% (0.0-3.0); Hemoglobin (Hb) 7.2 g/dL (14.0-18.0); O2 Tension (PaO2), arterial 493.3 mmHg (> 60.0); Potassium - ABG Lab 4.34 mmol/L (3.70-5.30); pH, Arterial 7.41 (7.35-7.45)
[2022-04-26 10:52] LABS: Actual Bicarbonate (HCO3a) 20.6 mEq/L (22-28); Analyzer IN Cardio OR; CO2 Tension 31.9 mmHg (35.0-45.0); Calcium, Ionized (arterial) 1.04 mmol/L (1.12-1.30); Carboxyhemoglobin (COHb) 0.3 gm% (0.0-3.0); Hemoglobin (Hb) 10.9 g/dL (14.0-18.0); Potassium - ABG Lab 4.12 mmol/L (3.70-5.30); pH, Arterial 7.43 (7.35-7.45)
[2022-04-26] MEDS: Polyethylene Glycol 3350 17 GM Packet PO SCH (10:53)
[2022-04-26 10:54] LABS: O2 Tension (PaO2), arterial 599.1 mmHg (> 60.0); Puncture Site Arterial Line
[2022-04-26 10:57] LABS: O2 Tension (PaO2), arterial 514.9 mmHg (> 60.0); Puncture Site Arterial Line
[2022-04-26 10:58] LABS: O2 Tension (PaO2), arterial 561.6 mmHg (> 60.0); Puncture Site Arterial Line
[2022-04-26 10:58] LABS: Puncture Site Arterial Line
[2022-04-26 10:59] LABS: Puncture Site Arterial Line; pH, Arterial 7.23 (7.35-7.45)
[2022-04-26 11:00] LABS: Puncture Site Arterial Line
[2022-04-26] MEDS: Amiodarone 200 MG TAB PO SCH (21:53)
[2022-04-26] MEDS: Atorvastatin Calcium 10 MG TAB PO SCH (21:53)
[2022-04-27] MEDS: Piperacillin/Tazobactam 3.375 GM in Sodium Chloride 0.9% 100 ML IVPB SCH ×3 (05:21→22:07)
[2022-04-27] MEDS: Potassium Chloride 10 MEQ TAB PO SCH (09:03)
[2022-04-27] MEDS: Aspirin Chewable 81 MG TAB PO SCH (09:04)
[2022-04-27] MEDS: Amiodarone 200 MG TAB PO SCH ×2 (09:04→20:09)
[2022-04-27] MEDS: Famotidine 20 MG TAB PO SCH ×2 (09:04→20:10)
[2022-04-27] MEDS: Heparin 5,000 UNITS/ML VIAL SC SCH ×2 (09:06→20:09)
[2022-04-27] MEDS: Carvedilol 6.25 MG TAB PO SCH ×2 (09:10→17:21)
[2022-04-27] MEDS: Polyethylene Glycol 3350 17 GM Packet PO SCH (09:42)
[2022-04-27] MEDS: Atorvastatin Calcium 10 MG TAB PO SCH (20:10)
[2022-04-28] MEDS: Piperacillin/Tazobactam 3.375 GM in Sodium Chloride 0.9% 100 ML IVPB SCH (05:43)
[2022-04-28] MEDS: Carvedilol 6.25 MG TAB PO SCH (09:03)
[2022-04-28] MEDS: Potassium Chloride 10 MEQ TAB PO SCH (09:03)
[2022-04-28] MEDS: Aspirin Chewable 81 MG TAB PO SCH (09:03)
[2022-04-28] MEDS: Amiodarone 200 MG TAB PO SCH (09:03)
[2022-04-28] MEDS: Famotidine 20 MG TAB PO SCH (09:03)
[2022-04-28] MEDS: Heparin 5,000 UNITS/ML VIAL SC SCH (09:14)
[2022-04-28] MEDS: Polyethylene Glycol 3350 17 GM Packet PO SCH (09:14)
[2022-04-28 12:04] VITALS: TEMP 97.9
[2022-04-28 13:39] VITALS: BP 139/63
[2022-04-28] MEDS ORDERED: Ciprofloxacin 500 MG TAB PO SCH (20:00)
== END 2022-04-28 12:25 | disposition home or self-care (01) | DRG 233 ==
LOC: EEVIPCON 09:56 → ERS 09:56 → SUATTDRO 09:56 → ERHOLD 13:50 → EEVIPCON 13:50 → 2NO 19:33 → CCU 04-22 07:31 → 2NO 04-24 16:01
PROVIDERS: ADMIT Internal Medicine; ATTEND Internal Medicine
PROC: 4A023N7 Measurement of Cardiac Sampling and Pressure, Left Heart, Percutaneous Approach (ICD-10-PCS; 2022-04-19)
PROC: B2151ZZ Fluoroscopy of Left Heart using Low Osmolar Contrast (ICD-10-PCS; 2022-04-19)
PROC: 02100Z9 Bypass Coronary Artery, One Artery from Left Internal Mammary, Open Approach (ICD-10-PCS; principal; 2022-04-22)
PROC: 021209W Bypass Coronary Artery, Three Arteries from Aorta with Autologous Venous Tissue, Open Approach (ICD-10-PCS; 2022-04-22)
PROC: 06BM0ZZ Excision of Right Femoral Vein, Open Approach (ICD-10-PCS; 2022-04-22)
PROC: 5A1221Z Performance of Cardiac Output, Continuous (ICD-10-PCS; 2022-04-22)
PROC: 02L70ZK Occlusion of Left Atrial Appendage, Open Approach (ICD-10-PCS; 2022-04-22)
PROC: 30233N1 Transfusion of Nonautologous Red Blood Cells into Peripheral Vein, Percutaneous Approach (ICD-10-PCS; 2022-04-22)
DX: I21.4 Non-ST elevation (NSTEMI) myocardial infarction (principal); J10.08 Influenza due to other identified influenza virus with other specified pneumonia; J96.00 Acute respiratory failure, unspecified whether with hypoxia or hypercapnia; J12.9 Viral pneumonia, unspecified; N17.9 Acute kidney failure, unspecified; I47.29 Other ventricular tachycardia; I50.22 Chronic systolic (congestive) heart failure; Z20.822 Contact with and (suspected) exposure to COVID-19; I25.5 Ischemic cardiomyopathy; I25.10 Atherosclerotic heart disease of native coronary artery without angina pectoris; I11.0 Hypertensive heart disease with heart failure; I48.0 Paroxysmal atrial fibrillation; Z79.51 Long term (current) use of inhaled steroids; Z79.899 Other long term (current) drug therapy
CPT/HCPCS: 36415; 36416; 36430; 71045; 80048; 80053; 80061; 81003; 81015; 82553; 82805; 83605; 83735; 84100; 84484; 85025; 85347; 85610; 85730; 86850; 86900; 86901; 87040; 87070; 87077; 87086; 87186; 87205; 87449; 87811; 87899; 93005; 93010; 93306; 93458; 93798; 94002; 94003; 94150; 94640; 94760; 96361; 96374; 96375; 99152; C1751; C1769; J0282; J0456; J0696; J1160; J1642; J1644; J1650; J1815; J1885; J1940; J2001; J2150; J2250; J2370; J2440; J2543; J2704; J2720; J3010; J3370; J3475; J3480; J3490; J7050; J7070; J7120; J7620; P9016; P9045; Q9967; S0017; S0028

== ENCOUNTER 2022-06-26 13:33 | Inpatient (IN) | payer MEDICARE, OTHER ==
[2022-06-26] MEDS ORDERED: cefTRIAXone\\ROCEPHIN 2 GM VIAL ONE (14:40)
[2022-06-26 14:53] LABS: #Lymphocytes 1.5 thou/uL (1.20-3.40); #Monocytes 0.8 thou/uL (0.11-0.59); #Neutrophils 7.5 thou/uL (1.40-6.50); %Basophils 0.3 % (0.0-1.0); %Eosinophils 0.1 % (0.0-10.0); %Lymphocytes 15.7 % (21.0-51.0); %Monocytes 7.7 % (0.0-10.0); %Neutrophils 76.2 % (42.0-75.0); Hemoglobin 11.4 g/dL (14.0-18.0); Mean Corpuscular HGB CONC 31.9 g/dL (32.0-36.0); Mean Corpuscular Hemoglobin 27.2 pg (27.0-31.0); Mean Corpuscular Volume 85.2 fl (78.0-98.0); Mean Platelet Volume 8.3 fL (7.4-10.4); Platelet Count 206 10x3/uL (130-400); RBC Distribution Width 15.2 % (11.5-14.5); Red Blood Cell (RBC) Count 4.18 mill/uL (4.70-6.10); White Blood Cell (WBC) Count 9.8 10x3/uL (4.8-10.8)
[2022-06-26 15:11] LABS: Bilirubin Negative (Negative); Blood, Urine Negative (Negative); Clarity Clear (Clear); Glucose, Urine (Dipstick) Normal (Negative); Ketone, Urine Negative (Negative); Leukocyte Negative Leu/uL (Negative); Nitrite Negative (Negative); Protein, Urine (Dipstick) Negative (Neg-Trace); Specific Gravity, Urine 1.007 (1.002-1.036); Urobilinogen Normal mg/dL (Less than 2); pH, Urine 5.5 (5.0-9.0)
[2022-06-26 15:11] LABS: ALT (SGPT) 12 U/L (8-55); AST (SGOT) 19 U/L (5-34); Albumin 3.1 g/dL (3.4-4.8); Alkaline Phosphatase 80 U/L (40-110); Anion Gap 10 mmol/L (10-20); BUN (Urea Nitrogen) 17 mg/dL (8.4-25.7); Bilirubin, Total 0.7 mg/dL (0.2-1.2); CK (CPK) 77 U/L (30-200); Calc. Creatinine Clearance 0 mL/min (70-130); Calcium 8.1 mg/dL (7.8-10.44); Carbon Dioxide 30 mmol/L (23-31); Chloride 98 mmol/L (98-107); Estimated GFR 46; Glucose 100 mg/dL (83-110); Potassium 4.2 mmol/L (3.5-5.1); Protein, Total 7.1 g/dL (5.8-8.1); Sodium 134 mmol/L (136-145)
[2022-06-26 15:26] LABS: CKMB 1.9 ng/mL (0-6.6)
[2022-06-26 15:55] LABS: SARS-CoV-2 NAA Rapid Test Not Detected (NotDetected)
[2022-06-26] MEDS ORDERED: Aspirin Chewable 81 MG TAB ONE (16:08)
[2022-06-26] MEDS ORDERED: Nitroglycerin 2% Ointment 1 INCH/1 GM Packet ONE (16:08)
[2022-06-26] MEDS ORDERED: Azithromycin 500 MG VIAL ONE (16:10)
[2022-06-26] MEDS ORDERED: Furosemide 40 MG/4 ML VIAL ONE (16:10)
[2022-06-26] MEDS ORDERED: Ondansetron PF 4 MG/2 ML Vial IVP PRN (17:21)
[2022-06-26] MEDS ORDERED: Ondansetron ODT 4 MG TAB PO PRN (17:21)
[2022-06-26] MEDS ORDERED: Acetaminophen 650 MG Suppository PR PRN (17:21)
[2022-06-26] MEDS ORDERED: Acetaminophen 325 MG TAB PO PRN (17:21)
[2022-06-26 18:05] LABS: Troponin I 0.054 ng/mL (< 0.028)
[2022-06-26 21:11] LABS: Troponin I 0.056 ng/mL (< 0.028)
[2022-06-26] MEDS: Azithromycin 500 MG in Sodium Chloride 0.9% 250 ML 250 ML IVPB SCH (21:20)
[2022-06-26] MEDS: Cefepime 2 GM in Sodium Chloride 0.9% 100 ML IVPB SCH (21:23)
[2022-06-26 22:15] VITALS: BMI 22.4
[2022-06-27] MEDS: Furosemide 40 MG/4 ML VIAL SLOW IVP SCH ×2 (05:16→14:45)
[2022-06-27 05:26] LABS: #Lymphocytes 1.6 thou/uL (1.20-3.40); #Neutrophils 7.3 thou/uL (1.40-6.50); %Eosinophils 0.2 % (0.0-10.0); %Lymphocytes 16.4 % (21.0-51.0); %Monocytes 9.6 % (0.0-10.0); %Neutrophils 73.8 % (42.0-75.0); Hemoglobin 10.7 g/dL (14.0-18.0); Mean Corpuscular HGB CONC 31.7 g/dL (32.0-36.0); Mean Corpuscular Hemoglobin 26.8 pg (27.0-31.0); Mean Corpuscular Volume 84.4 fl (78.0-98.0); Mean Platelet Volume 8.9 fL (7.4-10.4); Platelet Count 181 10x3/uL (130-400); Red Blood Cell (RBC) Count 3.99 mill/uL (4.70-6.10); White Blood Cell (WBC) Count 9.9 10x3/uL (4.8-10.8)
[2022-06-27 05:46] LABS: Anion Gap 12 mmol/L (10-20); BUN (Urea Nitrogen) 19 mg/dL (8.4-25.7); Calc. Creatinine Clearance 34 mL/min (70-130); Calcium 8.1 mg/dL (7.8-10.44); Carbon Dioxide 28 mmol/L (23-31); Chloride 99 mmol/L (98-107); Estimated GFR 53; Glucose 98 mg/dL (83-110); Potassium 3.8 mmol/L (3.5-5.1); Sodium 135 mmol/L (136-145)
[2022-06-27] MEDS: Carvedilol 6.25 MG TAB PO SCH ×2 (08:47→18:19)
[2022-06-27] MEDS: Cefepime 2 GM in Sodium Chloride 0.9% 100 ML IVPB SCH ×2 (08:48→21:09)
[2022-06-27] MEDS ORDERED: Guaifenesin DM 100-10/5 ML UDCUP PO PRN (17:09)
[2022-06-27] MEDS: Azithromycin 500 MG in Sodium Chloride 0.9% 250 ML 250 ML IVPB SCH (18:19)
[2022-06-27] MEDS ORDERED: Atorvastatin Calcium 10 MG TAB PO SCH (21:00)
[2022-06-27] MEDS: Atorvastatin Calcium 20 MG TAB PO SCH (21:08)
[2022-06-27] MEDS: Amiodarone 200 MG TAB PO SCH (21:08)
[2022-06-28 05:15] LABS: #Lymphocytes 2.1 thou/uL (1.20-3.40); #Neutrophils 6.2 thou/uL (1.40-6.50); %Basophils 0.1 % (0.0-1.0); %Eosinophils 0.2 % (0.0-10.0); %Lymphocytes 22.7 % (21.0-51.0); %Monocytes 10.4 % (0.0-10.0); %Neutrophils 66.6 % (42.0-75.0); Hemoglobin 9.8 g/dL (14.0-18.0); Mean Corpuscular HGB CONC 31.9 g/dL (32.0-36.0); Mean Corpuscular Hemoglobin 27.3 pg (27.0-31.0); Mean Corpuscular Volume 85.7 fl (78.0-98.0); Mean Platelet Volume 8.5 fL (7.4-10.4); Platelet Count 167 10x3/uL (130-400); RBC Distribution Width 15.1 % (11.5-14.5); Red Blood Cell (RBC) Count 3.57 mill/uL (4.70-6.10); White Blood Cell (WBC) Count 9.3 10x3/uL (4.8-10.8)
[2022-06-28] MEDS: Furosemide 40 MG/4 ML VIAL SLOW IVP SCH ×2 (05:19→14:29)
[2022-06-28 05:32] LABS: Anion Gap 10 mmol/L (10-20); BUN (Urea Nitrogen) 20 mg/dL (8.4-25.7); Calc. Creatinine Clearance 31 mL/min (70-130); Calcium 7.7 mg/dL (7.8-10.44); Carbon Dioxide 29 mmol/L (23-31); Chloride 94 mmol/L (98-107); Estimated GFR 47; Glucose 118 mg/dL (83-110); Potassium 3.3 mmol/L (3.5-5.1); Sodium 130 mmol/L (136-145)
[2022-06-28] MEDS: Cefepime 2 GM in Sodium Chloride 0.9% 100 ML IVPB SCH ×2 (10:12→20:55)
[2022-06-28] MEDS: Aspirin Chewable 81 MG TAB PO SCH (10:12)
[2022-06-28] MEDS: Carvedilol 6.25 MG TAB PO SCH ×2 (10:13→19:27)
[2022-06-28] MEDS: Amiodarone 200 MG TAB PO SCH ×2 (10:14→20:55)
[2022-06-28] MEDS ORDERED: Carvedilol 3.125 MG TAB PO SCH (18:30)
[2022-06-28] MEDS: Azithromycin 500 MG in Sodium Chloride 0.9% 250 ML 250 ML IVPB SCH (18:48)
[2022-06-28] MEDS: Atorvastatin Calcium 20 MG TAB PO SCH (20:55)
[2022-06-29 05:10] LABS: #Lymphocytes 2.2 thou/uL (1.20-3.40); #Monocytes 0.8 thou/uL (0.11-0.59); #Neutrophils 7.3 thou/uL (1.40-6.50); %Basophils 0.1 % (0.0-1.0); %Eosinophils 0.3 % (0.0-10.0); %Lymphocytes 21.1 % (21.0-51.0); %Monocytes 7.8 % (0.0-10.0); %Neutrophils 70.7 % (42.0-75.0); Hemoglobin 9.7 g/dL (14.0-18.0); Mean Corpuscular HGB CONC 31.7 g/dL (32.0-36.0); Mean Corpuscular Hemoglobin 27.1 pg (27.0-31.0); Mean Corpuscular Volume 85.4 fl (78.0-98.0); Mean Platelet Volume 8.5 fL (7.4-10.4); Platelet Count 161 10x3/uL (130-400); RBC Distribution Width 14.8 % (11.5-14.5); Red Blood Cell (RBC) Count 3.57 mill/uL (4.70-6.10); White Blood Cell (WBC) Count 10.3 10x3/uL (4.8-10.8)
[2022-06-29] MEDS: Furosemide 40 MG/4 ML VIAL SLOW IVP SCH ×2 (05:26→15:12)
[2022-06-29 05:35] LABS: Anion Gap 10 mmol/L (10-20); BUN (Urea Nitrogen) 23 mg/dL (8.4-25.7); Calc. Creatinine Clearance 31 mL/min (70-130); Calcium 7.6 mg/dL (7.8-10.44); Carbon Dioxide 30 mmol/L (23-31); Chloride 94 mmol/L (98-107); Estimated GFR 49; Glucose 81 mg/dL (83-110); Potassium 3.4 mmol/L (3.5-5.1); Sodium 131 mmol/L (136-145)
[2022-06-29] MEDS: Carvedilol 3.125 MG TAB PO SCH ×2 (08:22→17:15)
[2022-06-29] MEDS ORDERED: Polyethylene Glycol 3350 17 GM Packet PO PRN (09:23)
[2022-06-29] MEDS ORDERED: Electrolyte Replacement Protocol 1 EACH FS SCH (09:30)
[2022-06-29] MEDS ORDERED: Potassium Chloride 20 MEQ TAB PO SCH ×2 (09:30→18:15)
[2022-06-29] MEDS: Amiodarone 200 MG TAB PO SCH ×2 (10:03→21:05)
[2022-06-29] MEDS: Cefepime 2 GM in Sodium Chloride 0.9% 100 ML IVPB SCH ×2 (10:04→21:04)
[2022-06-29] MEDS: Aspirin Chewable 81 MG TAB PO SCH (10:04)
[2022-06-29 15:13] LABS: Potassium 3.9 mmol/L (3.5-5.1)
[2022-06-29] MEDS: Azithromycin 500 MG in Sodium Chloride 0.9% 250 ML 250 ML IVPB SCH (17:16)
[2022-06-29] MEDS: Ipratropium/Albuterol 3 ML NEB NEB SCH (18:34)
[2022-06-29] MEDS: Docusate 100 MG CAP PO SCH (21:05)
[2022-06-29] MEDS: Atorvastatin Calcium 20 MG TAB PO SCH (21:05)
[2022-06-30] MEDS: Ipratropium/Albuterol 3 ML NEB NEB SCH ×4 (01:13→19:18)
[2022-06-30 05:30] LABS: #Eosinphils 0.1 thou/uL (0.0-0.7); #Lymphocytes 2.2 thou/uL (1.20-3.40); #Monocytes 0.8 thou/uL (0.11-0.59); %Basophils 0.1 % (0.0-1.0); %Eosinophils 0.8 % (0.0-10.0); %Lymphocytes 21.6 % (21.0-51.0); %Monocytes 8.1 % (0.0-10.0); %Neutrophils 69.5 % (42.0-75.0); Hemoglobin 9.7 g/dL (14.0-18.0); Mean Corpuscular Hemoglobin 27.1 pg (27.0-31.0); Mean Corpuscular Volume 84.6 fl (78.0-98.0); Mean Platelet Volume 8.8 fL (7.4-10.4); Platelet Count 171 10x3/uL (130-400); RBC Distribution Width 14.8 % (11.5-14.5); Red Blood Cell (RBC) Count 3.59 mill/uL (4.70-6.10); White Blood Cell (WBC) Count 10.1 10x3/uL (4.8-10.8)
[2022-06-30 05:54] LABS: Anion Gap 9 mmol/L (10-20); BUN (Urea Nitrogen) 25 mg/dL (8.4-25.7); Calc. Creatinine Clearance 33 mL/min (70-130); Carbon Dioxide 31 mmol/L (23-31); Chloride 95 mmol/L (98-107); Estimated GFR 52; Glucose 84 mg/dL (83-110); Potassium 4.4 mmol/L (3.5-5.1); Sodium 131 mmol/L (136-145)
[2022-06-30] MEDS: Furosemide 40 MG/4 ML VIAL SLOW IVP SCH ×2 (06:19→14:41)
[2022-06-30] MEDS: Carvedilol 3.125 MG TAB PO SCH ×2 (09:22→18:10)
[2022-06-30] MEDS: Aspirin Chewable 81 MG TAB PO SCH (09:23)
[2022-06-30] MEDS: Potassium Chloride 20 MEQ TAB PO SCH ×2 (09:23→18:10)
[2022-06-30] MEDS: Amiodarone 200 MG TAB PO SCH ×2 (09:23→20:33)
[2022-06-30] MEDS: Multivit, Therapeutic 1 TAB PO SCH (09:24)
[2022-06-30] MEDS: Cefepime 2 GM in Sodium Chloride 0.9% 100 ML IVPB SCH ×2 (09:24→20:32)
[2022-06-30] MEDS: Docusate 100 MG CAP PO SCH ×2 (09:24→20:33)
[2022-06-30] MEDS: Atorvastatin Calcium 20 MG TAB PO SCH (20:33)
[2022-06-30] MEDS ORDERED: Azithromycin 250 MG TAB PO SCH (21:00)
[2022-07-01] MEDS: Ipratropium/Albuterol 3 ML NEB NEB SCH ×4 (00:35→18:39)
[2022-07-01] MEDS: Furosemide 40 MG/4 ML VIAL SLOW IVP SCH (05:40)
[2022-07-01 05:45] LABS: #Eosinphils 0.1 thou/uL (0.0-0.7); #Lymphocytes 2.2 thou/uL (1.20-3.40); #Monocytes 0.6 thou/uL (0.11-0.59); #Neutrophils 6.2 thou/uL (1.40-6.50); %Basophils 0.2 % (0.0-1.0); %Eosinophils 0.9 % (0.0-10.0); %Lymphocytes 23.8 % (21.0-51.0); %Monocytes 6.8 % (0.0-10.0); %Neutrophils 68.3 % (42.0-75.0); Hemoglobin 10.3 g/dL (14.0-18.0); Mean Corpuscular HGB CONC 31.5 g/dL (32.0-36.0); Mean Corpuscular Hemoglobin 26.9 pg (27.0-31.0); Mean Corpuscular Volume 85.6 fl (78.0-98.0); Mean Platelet Volume 8.6 fL (7.4-10.4); Platelet Count 188 10x3/uL (130-400); RBC Distribution Width 14.9 % (11.5-14.5); Red Blood Cell (RBC) Count 3.84 mill/uL (4.70-6.10); White Blood Cell (WBC) Count 9.1 10x3/uL (4.8-10.8)
[2022-07-01 06:01] LABS: Anion Gap 8 mmol/L (10-20); BUN (Urea Nitrogen) 22 mg/dL (8.4-25.7); Calc. Creatinine Clearance 34 mL/min (70-130); Calcium 8.3 mg/dL (7.8-10.44); Carbon Dioxide 32 mmol/L (23-31); Chloride 94 mmol/L (98-107); Estimated GFR 56; Glucose 83 mg/dL (83-110); Potassium 4.4 mmol/L (3.5-5.1); Sodium 130 mmol/L (136-145)
[2022-07-01] MEDS: Potassium Chloride 20 MEQ TAB PO SCH ×2 (09:26→18:09)
[2022-07-01] MEDS: Cefepime 2 GM in Sodium Chloride 0.9% 100 ML IVPB SCH (09:31)
[2022-07-01] MEDS: Aspirin Chewable 81 MG TAB PO SCH (09:31)
[2022-07-01] MEDS: Multivit, Therapeutic 1 TAB PO SCH (09:32)
[2022-07-01] MEDS: Docusate 100 MG CAP PO SCH ×2 (09:32→20:37)
[2022-07-01] MEDS: Carvedilol 3.125 MG TAB PO SCH ×2 (09:50→18:41)
[2022-07-01] MEDS: Amiodarone 200 MG TAB PO SCH (09:59)
[2022-07-01] MEDS: Atorvastatin Calcium 20 MG TAB PO SCH (20:37)
[2022-07-01] MEDS: Doxycycline 100 MG CAP PO SCH (20:37)
[2022-07-02] MEDS: Ipratropium/Albuterol 3 ML NEB NEB SCH ×3 (00:58→13:33)
[2022-07-02] MEDS ORDERED: Furosemide 40 MG TAB PO SCH (07:30)
[2022-07-02] MEDS ORDERED: Amiodarone 200 MG TAB PO SCH (09:00)
[2022-07-02] MEDS: Potassium Chloride 20 MEQ TAB PO SCH (10:11)
[2022-07-02] MEDS: Doxycycline 100 MG CAP PO SCH (10:11)
[2022-07-02] MEDS: Multivit, Therapeutic 1 TAB PO SCH (10:11)
[2022-07-02] MEDS: Docusate 100 MG CAP PO SCH (10:12)
[2022-07-02] MEDS: Carvedilol 3.125 MG TAB PO SCH ×2 (10:12→16:43)
[2022-07-02] MEDS: Aspirin Chewable 81 MG TAB PO SCH (10:12)
[2022-07-02 13:19] VITALS: BP 152/70; TEMP 97.3
== END 2022-07-02 17:02 | disposition home or self-care (01) | DRG 177 ==
LOC: ERS 13:33 → 2SW 17:18
PROVIDERS: ADMIT Internal Medicine; ATTEND Family Medicine
DX: J15.6 Pneumonia due to other Gram-negative bacteria (principal); I21.A1 Myocardial infarction type 2; I50.23 Acute on chronic systolic (congestive) heart failure; J96.01 Acute respiratory failure with hypoxia; N17.9 Acute kidney failure, unspecified; E87.1 Hypo-osmolality and hyponatremia; I13.0 Hypertensive heart and chronic kidney disease with heart failure and stage 1 through stage 4 chronic kidney disease, or unspecified chronic kidney disease; I25.10 Atherosclerotic heart disease of native coronary artery without angina pectoris; E78.5 Hyperlipidemia, unspecified; Z20.822 Contact with and (suspected) exposure to COVID-19; R00.1 Bradycardia, unspecified; R53.1 Weakness; N18.9 Chronic kidney disease, unspecified; E87.6 Hypokalemia; I25.5 Ischemic cardiomyopathy; Z95.1 Presence of aortocoronary bypass graft; Z87.01 Personal history of pneumonia (recurrent); I25.2 Old myocardial infarction; Z79.82 Long term (current) use of aspirin; Z79.899 Other long term (current) drug therapy; Z82.49 Family history of ischemic heart disease and other diseases of the circulatory system
CPT/HCPCS: 36415; 71045; 71046; 80048; 80053; 81003; 82550; 82553; 83605; 83735; 83880; 84145; 84484; 85025; 87040; 93005; 93798; 94640; 96365; 96367; 96375; J0456; J0692; J0696; J1940; J3490; J7050; J7620

== ENCOUNTER 2022-09-03 15:43 | Inpatient (IN) | payer MEDICARE, OTHER ==
[2022-09-03 16:41] LABS: #Basophils 0.1 thou/uL (0.0-0.2); #Lymphocytes 2.6 thou/uL (1.20-3.40); #Monocytes 1.1 thou/uL (0.11-0.59); #Neutrophils 9.3 thou/uL (1.40-6.50); %Basophils 0.5 % (0.0-1.0); %Eosinophils 0.3 % (0.0-10.0); %Monocytes 8.7 % (0.0-10.0); %Neutrophils 70.5 % (42.0-75.0); Hemoglobin 10.1 g/dL (14.0-18.0); Mean Corpuscular HGB CONC 32.4 g/dL (32.0-36.0); Mean Corpuscular Hemoglobin 28.4 pg (27.0-31.0); Mean Corpuscular Volume 87.5 fl (78.0-98.0); Mean Platelet Volume 8.3 fL (7.4-10.4); Platelet Count 252 10x3/uL (130-400); Red Blood Cell (RBC) Count 3.55 mill/uL (4.70-6.10); White Blood Cell (WBC) Count 13.2 10x3/uL (4.8-10.8)
[2022-09-03 17:01] LABS: ALT (SGPT) 10 U/L (8-55); AST (SGOT) 14 U/L (5-34); Albumin 3.4 g/dL (3.4-4.8); Alkaline Phosphatase 90 U/L (40-110); Anion Gap 13 mmol/L (10-20); BUN (Urea Nitrogen) 23 mg/dL (8.4-25.7); Bilirubin, Total 0.4 mg/dL (0.2-1.2); CK (CPK) 98 U/L (30-200); Calc. Creatinine Clearance 0 mL/min (70-130); Calcium 8.2 mg/dL (7.8-10.44); Carbon Dioxide 27 mmol/L (23-31); Chloride 100 mmol/L (98-107); Estimated GFR 46; Globulin 3.4 g/dL (2.4-3.5); Glucose 123 mg/dL (83-110); Protein, Total 6.8 g/dL (5.8-8.1); Sodium 136 mmol/L (136-145)
[2022-09-03] MEDS ORDERED: Acetaminophen 325 MG TAB PO PRN (20:34)
[2022-09-03] MEDS ORDERED: Ondansetron PF 4 MG/2 ML Vial IVP PRN (20:34)
[2022-09-03] MEDS ORDERED: Furosemide 20 MG/2 ML VIAL SLOW IVP SCH (20:45)
[2022-09-03] MEDS: Ipratropium/Albuterol 3 ML NEB NEB SCH (21:40)
[2022-09-03 22:01] VITALS: BMI 21.2
[2022-09-03] MEDS: methylPREDNISolone Sod Succ 40 MG VIAL IVP SCH (22:07)
[2022-09-03] MEDS: cefTRIAXone\\ROCEPHIN 1 GM in Sodium Chloride 0.9% 100 ML IVPB SCH (22:07)
[2022-09-03] MEDS: Azithromycin 500 MG in Sodium Chloride 0.9% 250 ML 250 ML IVPB SCH (23:58)
[2022-09-04] MEDS: Ipratropium/Albuterol 3 ML NEB NEB SCH ×4 (02:16→19:27)
[2022-09-04 04:57] LABS: #Monocytes 0.1 thou/uL (0.11-0.59); #Neutrophils 11.2 thou/uL (1.40-6.50); %Basophils 0.2 % (0.0-1.0); %Eosinophils 0.1 % (0.0-10.0); %Lymphocytes 7.9 % (21.0-51.0); %Monocytes 0.5 % (0.0-10.0); %Neutrophils 91.3 % (42.0-75.0); Hemoglobin 10.2 g/dL (14.0-18.0); Mean Corpuscular HGB CONC 32.1 g/dL (32.0-36.0); Mean Corpuscular Hemoglobin 28.4 pg (27.0-31.0); Mean Corpuscular Volume 88.5 fl (78.0-98.0); Mean Platelet Volume 8.3 fL (7.4-10.4); Platelet Count 243 10x3/uL (130-400); RBC Distribution Width 16.2 % (11.5-14.5); Red Blood Cell (RBC) Count 3.61 mill/uL (4.70-6.10); White Blood Cell (WBC) Count 12.3 10x3/uL (4.8-10.8)
[2022-09-04 05:05] LABS: Anion Gap 11 mmol/L (10-20); BUN (Urea Nitrogen) 24 mg/dL (8.4-25.7); Calc. Creatinine Clearance 32 mL/min (70-130); Calcium 8.5 mg/dL (7.8-10.44); Carbon Dioxide 26 mmol/L (23-31); Chloride 103 mmol/L (98-107); Estimated GFR 53; Glucose 169 mg/dL (83-110); Magnesium 1.9 mg/dL (1.6-2.6); Potassium 3.8 mmol/L (3.5-5.1); Sodium 136 mmol/L (136-145)
[2022-09-04] MEDS: Furosemide 20 MG/2 ML VIAL SLOW IVP SCH ×2 (06:16→13:56)
[2022-09-04] MEDS: methylPREDNISolone Sod Succ 40 MG VIAL IVP SCH ×3 (06:17→21:14)
[2022-09-04] MEDS: Aspirin Chewable 81 MG TAB PO SCH (09:17)
[2022-09-04] MEDS ORDERED: Ipratropium/Albuterol 3 ML NEB NEB PRN (10:16)
[2022-09-04] MEDS: Atorvastatin Calcium 20 MG TAB PO SCH (21:13)
[2022-09-04] MEDS: cefTRIAXone\\ROCEPHIN 1 GM in Sodium Chloride 0.9% 100 ML IVPB SCH (21:13)
[2022-09-04] MEDS: Azithromycin 500 MG in Sodium Chloride 0.9% 250 ML 250 ML IVPB SCH (21:56)
[2022-09-05 05:46] LABS: Hemoglobin 10.7 g/dL (14.0-18.0); Mean Corpuscular Hemoglobin 28.5 pg (27.0-31.0); Mean Platelet Volume 8.3 fL (7.4-10.4); Platelet Count 280 10x3/uL (130-400); RBC Distribution Width 16.2 % (11.5-14.5); Red Blood Cell (RBC) Count 3.74 mill/uL (4.70-6.10); White Blood Cell (WBC) Count 21.5 10x3/uL (4.8-10.8)
[2022-09-05] MEDS: Furosemide 20 MG/2 ML VIAL SLOW IVP SCH ×2 (05:47→16:37)
[2022-09-05] MEDS: methylPREDNISolone Sod Succ 40 MG VIAL IVP SCH ×3 (05:47→21:51)
[2022-09-05 06:03] LABS: Anion Gap 12 mmol/L (10-20); BUN (Urea Nitrogen) 27 mg/dL (8.4-25.7); Calc. Creatinine Clearance 38 mL/min (70-130); Calcium 8.5 mg/dL (7.8-10.44); Carbon Dioxide 26 mmol/L (23-31); Chloride 100 mmol/L (98-107); Estimated GFR 62; Glucose 147 mg/dL (83-110); Potassium 4.2 mmol/L (3.5-5.1); Sodium 134 mmol/L (136-145)
[2022-09-05 06:32] LABS: Anisocytosis SLIGHT = 6-15 cells (100X) (0-5/hpf); Band 1 % (5-11); Lymphocytes 3 % (21-51); MDiff Complete? YES; Monocytes 1 % (0-10); Neutrophil 95 % (42-75); Platelet Morphology Comment Appears Adequate
[2022-09-05] MEDS: Ipratropium/Albuterol 3 ML NEB NEB SCH ×2 (07:40→19:47)
[2022-09-05] MEDS: Aspirin Chewable 81 MG TAB PO SCH (09:49)
[2022-09-05] MEDS: Atorvastatin Calcium 20 MG TAB PO SCH (21:51)
[2022-09-05] MEDS: cefTRIAXone\\ROCEPHIN 1 GM in Sodium Chloride 0.9% 100 ML IVPB SCH (21:52)
[2022-09-05] MEDS: Azithromycin 500 MG in Sodium Chloride 0.9% 250 ML 250 ML IVPB SCH (22:36)
[2022-09-06 04:45] LABS: Anion Gap 13 mmol/L (10-20); BUN (Urea Nitrogen) 31 mg/dL (8.4-25.7); Calc. Creatinine Clearance 38 mL/min (70-130); Calcium 7.9 mg/dL (7.8-10.44); Carbon Dioxide 25 mmol/L (23-31); Chloride 99 mmol/L (98-107); Estimated GFR 63; Glucose 132 mg/dL (83-110); Potassium 4.3 mmol/L (3.5-5.1); Sodium 133 mmol/L (136-145)
[2022-09-06 04:49] LABS: Anisocytosis SLIGHT = 6-15 cells (100X) (0-5/hpf); Band 11 % (5-11); Lymphocytes 5 % (21-51); MDiff Complete? YES; Mean Corpuscular HGB CONC 32.9 g/dL (32.0-36.0); Mean Corpuscular Hemoglobin 29.1 pg (27.0-31.0); Mean Corpuscular Volume 88.5 fl (78.0-98.0); Mean Platelet Volume 8.1 fL (7.4-10.4); Monocytes 1 % (0-10); Neutrophil 83 % (42-75); Platelet Count 287 10x3/uL (130-400); Platelet Morphology Comment Appears Adequate; RBC Distribution Width 16.3 % (11.5-14.5); Red Blood Cell (RBC) Count 3.45 mill/uL (4.70-6.10)
[2022-09-06] MEDS: methylPREDNISolone Sod Succ 40 MG VIAL IVP SCH ×2 (05:15→14:53)
[2022-09-06] MEDS: Furosemide 20 MG/2 ML VIAL SLOW IVP SCH ×2 (05:15→14:54)
[2022-09-06] MEDS: Ipratropium/Albuterol 3 ML NEB NEB SCH ×2 (08:19→18:45)
[2022-09-06 08:40] VITALS: TEMP 97.5
[2022-09-06] MEDS: Aspirin Chewable 81 MG TAB PO SCH (09:42)
[2022-09-06 16:16] VITALS: BP 145/69
== END 2022-09-06 19:45 | disposition home or self-care (01) | DRG 196 ==
LOC: ERS 15:43 → 2NO 19:39
PROVIDERS: ADMIT Hospitalist; ATTEND Internal Medicine
DX: J84.10 Pulmonary fibrosis, unspecified (principal); I50.23 Acute on chronic systolic (congestive) heart failure; J18.9 Pneumonia, unspecified organism; J96.01 Acute respiratory failure with hypoxia; N17.9 Acute kidney failure, unspecified; I42.9 Cardiomyopathy, unspecified; I11.0 Hypertensive heart disease with heart failure; E78.5 Hyperlipidemia, unspecified; I25.10 Atherosclerotic heart disease of native coronary artery without angina pectoris; D63.8 Anemia in other chronic diseases classified elsewhere; J44.9 Chronic obstructive pulmonary disease, unspecified; Z79.899 Other long term (current) drug therapy; Z79.51 Long term (current) use of inhaled steroids; Z79.82 Long term (current) use of aspirin; Z95.1 Presence of aortocoronary bypass graft; Z98.890 Other specified postprocedural states; Z98.41 Cataract extraction status, right eye; Z98.42 Cataract extraction status, left eye; Z20.822 Contact with and (suspected) exposure to COVID-19
CPT/HCPCS: 36415; 71045; 71250; 80048; 80053; 82550; 83735; 83880; 84484; 85025; 87070; 87077; 87186; 87205; 93005; 93798; 94640; 96374; J0456; J0696; J1650; J1940; J2920; J3490; J7050; J7620; U0003; U0005

== ENCOUNTER 2022-09-23 10:39 | Outpatient (CLI) | payer MEDICARE, OTHER | END 2022-09-23 10:40 | disposition home or self-care (01) | LOC: RAD 10:39 | PROVIDERS: ATTEND Internal Medicine Critical Care Medicine | DX: R06.00 Dyspnea, unspecified (principal); J47.9 Bronchiectasis, uncomplicated; R91.8 Other nonspecific abnormal finding of lung field | CPT/HCPCS: 71046 ==

== ENCOUNTER 2022-09-30 20:40 | Emergency (ER) | payer MEDICARE, OTHER | END 2022-09-30 22:15 | disposition home or self-care (01) | LOC: ERS 20:40 | DX: S20.211A Contusion of right front wall of thorax, initial encounter (principal); I10 Essential (primary) hypertension; W18.30XA Fall on same level, unspecified, initial encounter; Z79.82 Long term (current) use of aspirin; Z79.899 Other long term (current) drug therapy | CPT/HCPCS: 93005 ==

== ENCOUNTER 2022-10-03 12:38 | Inpatient (IN) | payer MEDICARE, OTHER ==
[2022-10-03] MEDS ORDERED: Atropine Sulfate 1 mg/10 ml Syringe ONE (13:04)
[2022-10-03 13:10] LABS: #Basophils 0.1 thou/uL (0.0-0.2); #Eosinphils 0.1 thou/uL (0.0-0.7); #Lymphocytes 2.8 thou/uL (1.20-3.40); #Monocytes 0.8 thou/uL (0.11-0.59); #Neutrophils 5.9 thou/uL (1.40-6.50); %Basophils 0.6 % (0.0-1.0); %Lymphocytes 29.2 % (21.0-51.0); %Monocytes 7.8 % (0.0-10.0); %Neutrophils 61.4 % (42.0-75.0); Hemoglobin 10.8 g/dL (14.0-18.0); Mean Corpuscular HGB CONC 31.8 g/dL (32.0-36.0); Mean Corpuscular Hemoglobin 28.4 pg (27.0-31.0); Mean Corpuscular Volume 89.3 fl (78.0-98.0); Mean Platelet Volume 8.2 fL (7.4-10.4); Platelet Count 280 10x3/uL (130-400); RBC Distribution Width 15.5 % (11.5-14.5); Red Blood Cell (RBC) Count 3.79 mill/uL (4.70-6.10); White Blood Cell (WBC) Count 9.6 10x3/uL (4.8-10.8)
[2022-10-03 13:23] LABS: Actual Bicarbonate (HCO3v) 25 mEq/L (22-28); Base Excess 0.8 mEq/L (-2.0 to +3.0); Calcium, Ionized (venous) 1.01 mmol/L (1.16-1.32); Chloride (VBG) 95 mmol/L (98-106); Hemoglobin (Hb) 10.6 g/dL (12.6-17.4); Sodium 129.7 mmol/L (133-146); pH (venous) 7.45 (7.32-7.43)
[2022-10-03 13:36] LABS: ALT (SGPT) 11 U/L (8-55); AST (SGOT) 28 U/L (5-34); Albumin 3.2 g/dL (3.4-4.8); Alkaline Phosphatase 68 U/L (40-110); Anion Gap 15 mmol/L (10-20); BUN (Urea Nitrogen) 19 mg/dL (8.4-25.7); Bilirubin, Total 0.5 mg/dL (0.2-1.2); Calc. Creatinine Clearance 0 mL/min (70-130); Calcium 8.4 mg/dL (7.8-10.44); Carbon Dioxide 26 mmol/L (23-31); Chloride 95 mmol/L (98-107); Estimated GFR 44; Globulin 4.1 g/dL (2.4-3.5); Glucose 97 mg/dL (83-110); Potassium 5.1 mmol/L (3.5-5.1); Protein, Total 7.3 g/dL (5.8-8.1); Sodium 131 mmol/L (136-145)
[2022-10-03 15:17] LABS: Bilirubin Negative (Negative); Blood, Urine Negative (Negative); Clarity Clear (Clear); Glucose, Urine (Dipstick) Normal (Negative); Ketone, Urine Negative (Negative); Leukocyte Negative Leu/uL (Negative); Nitrite Negative (Negative); Protein, Urine (Dipstick) Negative (Neg-Trace); Specific Gravity, Urine 1.014 (1.002-1.036); Urobilinogen Normal mg/dL (Less than 2)
[2022-10-03] MEDS ORDERED: Iopamidol-370 76% 500 ML MDV (1 ML CHARGE) ONE (15:38)
[2022-10-03] MEDS ORDERED: Senokot S 8.6-50 MG TAB PO PRN (16:42)
[2022-10-03] MEDS ORDERED: Acetaminophen 325 MG TAB PO PRN (16:42)
[2022-10-03] MEDS ORDERED: Ondansetron ODT 4 MG TAB PO PRN (16:42)
[2022-10-03] MEDS ORDERED: Bisacodyl 5 MG TAB PO PRN (16:42)
[2022-10-03] MEDS ORDERED: HYDROcodone/Acetaminophen 5/325 mg Tablet PO PRN (16:42)
[2022-10-03 17:53] VITALS: BMI 21.6
[2022-10-03] MEDS: Ipratropium 200 Puff Oral Inhaler INH SCH (18:48)
[2022-10-03] MEDS: Atorvastatin Calcium 20 MG TAB PO SCH (21:35)
[2022-10-04 05:09] LABS: #Eosinphils 0.1 thou/uL (0.0-0.7); #Lymphocytes 2.3 thou/uL (1.20-3.40); #Monocytes 0.9 thou/uL (0.11-0.59); #Neutrophils 7.8 thou/uL (1.40-6.50); %Basophils 0.1 % (0.0-1.0); %Eosinophils 0.8 % (0.0-10.0); %Monocytes 8.3 % (0.0-10.0); %Neutrophils 69.8 % (42.0-75.0); Hemoglobin 9.8 g/dL (14.0-18.0); Mean Corpuscular HGB CONC 32.9 g/dL (32.0-36.0); Mean Corpuscular Hemoglobin 29.3 pg (27.0-31.0); Mean Corpuscular Volume 89.1 fl (78.0-98.0); Mean Platelet Volume 7.8 fL (7.4-10.4); Platelet Count 247 10x3/uL (130-400); RBC Distribution Width 15.2 % (11.5-14.5); Red Blood Cell (RBC) Count 3.35 mill/uL (4.70-6.10); White Blood Cell (WBC) Count 11.1 10x3/uL (4.8-10.8)
[2022-10-04 05:16] LABS: Anion Gap 13 mmol/L (10-20); BUN (Urea Nitrogen) 20 mg/dL (8.4-25.7); Calc. Creatinine Clearance 32 mL/min (70-130); Calcium 8.2 mg/dL (7.8-10.44); Carbon Dioxide 28 mmol/L (23-31); Chloride 94 mmol/L (98-107); Estimated GFR 49; Glucose 73 mg/dL (83-110); Potassium 4.1 mmol/L (3.5-5.1); Sodium 131 mmol/L (136-145)
[2022-10-04 05:47] LABS: Vitamin D, 25 Hydroxy 17.6 ng/ml (> 30.0)
[2022-10-04 06:29] LABS: Thyroid Stimulating Hormone 107.6614 uIU/mL (0.35-4.94)
[2022-10-04] MEDS: Ipratropium 200 Puff Oral Inhaler INH SCH ×4 (08:12→18:21)
[2022-10-04] MEDS: Aspirin Chewable 81 MG TAB PO SCH (09:28)
[2022-10-04] MEDS ORDERED: Benzonatate 100 MG CAP PO PRN (13:47)
[2022-10-04] MEDS: Diclofenac 1% 100 GM GEL TP SCH ×3 (14:55→20:08)
[2022-10-04] MEDS: Atorvastatin Calcium 20 MG TAB PO SCH (20:08)
[2022-10-05 05:07] LABS: #Eosinphils 0.2 thou/uL (0.0-0.7); #Lymphocytes 2.9 thou/uL (1.20-3.40); #Monocytes 1.3 thou/uL (0.11-0.59); #Neutrophils 8.2 thou/uL (1.40-6.50); %Basophils 0.1 % (0.0-1.0); %Eosinophils 1.5 % (0.0-10.0); %Lymphocytes 22.8 % (21.0-51.0); %Monocytes 10.1 % (0.0-10.0); %Neutrophils 65.5 % (42.0-75.0); Hemoglobin 9.3 g/dL (14.0-18.0); Mean Corpuscular HGB CONC 33.5 g/dL (32.0-36.0); Mean Corpuscular Hemoglobin 29.8 pg (27.0-31.0); Mean Corpuscular Volume 88.8 fl (78.0-98.0); Mean Platelet Volume 7.6 fL (7.4-10.4); Platelet Count 239 10x3/uL (130-400); RBC Distribution Width 15.3 % (11.5-14.5); Red Blood Cell (RBC) Count 3.14 mill/uL (4.70-6.10); White Blood Cell (WBC) Count 12.5 10x3/uL (4.8-10.8)
[2022-10-05 05:35] LABS: Anion Gap 12 mmol/L (10-20); BUN (Urea Nitrogen) 18 mg/dL (8.4-25.7); Calc. Creatinine Clearance 36 mL/min (70-130); Calcium 8.1 mg/dL (7.8-10.44); Carbon Dioxide 28 mmol/L (23-31); Chloride 95 mmol/L (98-107); Estimated GFR 57; Glucose 80 mg/dL (83-110); Potassium 3.8 mmol/L (3.5-5.1); Sodium 131 mmol/L (136-145)
[2022-10-05] MEDS: Ipratropium 200 Puff Oral Inhaler INH SCH ×4 (07:28→19:24)
[2022-10-05] MEDS ORDERED: Levothyroxine Sodium 50 MCG TAB PO SCH (08:30)
[2022-10-05] MEDS: Diclofenac 1% 100 GM GEL TP SCH ×4 (09:00→20:06)
[2022-10-05] MEDS: Cholecalciferol 1,000 UNITS (25 MCG) TAB PO SCH (09:36)
[2022-10-05] MEDS: Sacubitril 24MG/Valsartan 26 MG TAB PO SCH ×2 (09:36→20:05)
[2022-10-05] MEDS: Aspirin Chewable 81 MG TAB PO SCH (09:36)
[2022-10-05] MEDS: Atorvastatin Calcium 20 MG TAB PO SCH (20:06)
[2022-10-06] MEDS: Levothyroxine Sodium 50 MCG TAB PO SCH (05:43)
[2022-10-06] MEDS: Ipratropium 200 Puff Oral Inhaler INH SCH ×4 (08:05→18:55)
[2022-10-06] MEDS: Cholecalciferol 1,000 UNITS (25 MCG) TAB PO SCH (09:44)
[2022-10-06] MEDS: Aspirin Chewable 81 MG TAB PO SCH (09:44)
[2022-10-06] MEDS: Sacubitril 24MG/Valsartan 26 MG TAB PO SCH ×2 (09:45→20:21)
[2022-10-06] MEDS: Diclofenac 1% 100 GM GEL TP SCH ×4 (09:46→20:21)
[2022-10-06] MEDS ORDERED: Amoxicillin/Potassium Clav 875 MG TAB PO SCH (11:00)
[2022-10-06] MEDS: Atorvastatin Calcium 20 MG TAB PO SCH (20:21)
[2022-10-06] MEDS: Amoxicillin/Potassium Clav 875 MG TAB PO SCH (20:21)
[2022-10-07] MEDS: Levothyroxine Sodium 50 MCG TAB PO SCH (05:07)
[2022-10-07 05:26] LABS: #Eosinphils 0.3 thou/uL (0.0-0.7); #Lymphocytes 2.5 thou/uL (1.20-3.40); #Monocytes 1.3 thou/uL (0.11-0.59); #Neutrophils 11.8 thou/uL (1.40-6.50); %Basophils 0.2 % (0.0-1.0); %Eosinophils 1.6 % (0.0-10.0); %Lymphocytes 15.4 % (21.0-51.0); %Monocytes 8.3 % (0.0-10.0); %Neutrophils 74.4 % (42.0-75.0); Mean Corpuscular HGB CONC 32.5 g/dL (32.0-36.0); Mean Corpuscular Volume 89.3 fl (78.0-98.0); Mean Platelet Volume 7.6 fL (7.4-10.4); Platelet Count 250 10x3/uL (130-400); RBC Distribution Width 15.1 % (11.5-14.5); Red Blood Cell (RBC) Count 3.11 mill/uL (4.70-6.10); White Blood Cell (WBC) Count 15.9 10x3/uL (4.8-10.8)
[2022-10-07 05:35] LABS: Albumin 2.6 g/dL (3.4-4.8); Anion Gap 10 mmol/L (10-20); BUN (Urea Nitrogen) 12 mg/dL (8.4-25.7); BUN/Creatinine Ratio 11.76; Calc. Creatinine Clearance 43 mL/min (70-130); Calcium 8.3 mg/dL (7.8-10.44); Carbon Dioxide 30 mmol/L (23-31); Chloride 95 mmol/L (98-107); Estimated GFR 72; Glucose 84 mg/dL (83-110); Phosphorus 2.6 mg/dL (2.3-4.7); Sodium 131 mmol/L (136-145)
[2022-10-07] MEDS: Ipratropium 200 Puff Oral Inhaler INH SCH ×4 (07:15→18:57)
[2022-10-07] MEDS: Sacubitril 24MG/Valsartan 26 MG TAB PO SCH ×2 (09:10→20:52)
[2022-10-07] MEDS: Amoxicillin/Potassium Clav 875 MG TAB PO SCH (09:11)
[2022-10-07] MEDS: Carvedilol 3.125 MG TAB PO SCH (09:11)
[2022-10-07] MEDS: Aspirin Chewable 81 MG TAB PO SCH (09:11)
[2022-10-07] MEDS: Diclofenac 1% 100 GM GEL TP SCH ×4 (09:13→20:56)
[2022-10-07] MEDS: Cholecalciferol 1,000 UNITS (25 MCG) TAB PO SCH (09:13)
[2022-10-07] MEDS: Furosemide 40 MG TAB PO SCH (09:13)
[2022-10-07] MEDS: Atorvastatin Calcium 20 MG TAB PO SCH (20:53)
[2022-10-08 04:50] LABS: #Eosinphils 0.3 thou/uL (0.0-0.7); #Lymphocytes 2.6 thou/uL (1.20-3.40); #Monocytes 1.1 thou/uL (0.11-0.59); #Neutrophils 8.1 thou/uL (1.40-6.50); %Eosinophils 2.3 % (0.0-10.0); %Lymphocytes 21.5 % (21.0-51.0); %Monocytes 8.7 % (0.0-10.0); %Neutrophils 67.5 % (42.0-75.0); Hemoglobin 8.7 g/dL (14.0-18.0); Mean Corpuscular HGB CONC 32.1 g/dL (32.0-36.0); Mean Corpuscular Hemoglobin 28.9 pg (27.0-31.0); Mean Corpuscular Volume 90.1 fl (78.0-98.0); Mean Platelet Volume 7.1 fL (7.4-10.4); Platelet Count 242 10x3/uL (130-400); Red Blood Cell (RBC) Count 2.99 mill/uL (4.70-6.10)
[2022-10-08 05:16] LABS: Anion Gap 11 mmol/L (10-20); BUN (Urea Nitrogen) 12 mg/dL (8.4-25.7); Calc. Creatinine Clearance 45 mL/min (70-130); Calcium 8.1 mg/dL (7.8-10.44); Carbon Dioxide 29 mmol/L (23-31); Chloride 96 mmol/L (98-107); Estimated GFR 75; Glucose 86 mg/dL (83-110); Magnesium 1.7 mg/dL (1.6-2.6); Potassium 3.9 mmol/L (3.5-5.1); Sodium 132 mmol/L (136-145)
[2022-10-08] MEDS: Levothyroxine Sodium 50 MCG TAB PO SCH (05:24)
[2022-10-08] MEDS: Ipratropium 200 Puff Oral Inhaler INH SCH ×4 (07:47→18:50)
[2022-10-08] MEDS: Aspirin Chewable 81 MG TAB PO SCH (08:56)
[2022-10-08] MEDS: Sacubitril 24MG/Valsartan 26 MG TAB PO SCH ×2 (08:56→21:01)
[2022-10-08] MEDS: Cholecalciferol 1,000 UNITS (25 MCG) TAB PO SCH (08:56)
[2022-10-08] MEDS: Diclofenac 1% 100 GM GEL TP SCH ×4 (08:57→21:01)
[2022-10-08] MEDS: Furosemide 40 MG TAB PO SCH (08:57)
[2022-10-08] MEDS: Atorvastatin Calcium 20 MG TAB PO SCH (21:01)
[2022-10-08] MEDS: Carvedilol 3.125 MG TAB PO SCH (21:01)
[2022-10-09 04:52] LABS: #Eosinphils 0.2 thou/uL (0.0-0.7); #Lymphocytes 2.5 thou/uL (1.20-3.40); #Monocytes 1.3 thou/uL (0.11-0.59); #Neutrophils 10.7 thou/uL (1.40-6.50); %Basophils 0.2 % (0.0-1.0); %Eosinophils 1.5 % (0.0-10.0); %Lymphocytes 17.2 % (21.0-51.0); %Monocytes 8.6 % (0.0-10.0); %Neutrophils 72.5 % (42.0-75.0); Hemoglobin 8.7 g/dL (14.0-18.0); Mean Corpuscular HGB CONC 32.5 g/dL (32.0-36.0); Mean Corpuscular Hemoglobin 28.8 pg (27.0-31.0); Mean Corpuscular Volume 88.8 fl (78.0-98.0); Mean Platelet Volume 6.9 fL (7.4-10.4); Platelet Count 245 10x3/uL (130-400); RBC Distribution Width 14.6 % (11.5-14.5); Red Blood Cell (RBC) Count 3.02 mill/uL (4.70-6.10); White Blood Cell (WBC) Count 14.8 10x3/uL (4.8-10.8)
[2022-10-09 05:04] LABS: Anion Gap 12 mmol/L (10-20); BUN (Urea Nitrogen) 10 mg/dL (8.4-25.7); Calc. Creatinine Clearance 47 mL/min (70-130); Calcium 8.1 mg/dL (7.8-10.44); Carbon Dioxide 28 mmol/L (23-31); Chloride 95 mmol/L (98-107); Estimated GFR 77; Glucose 84 mg/dL (83-110); Potassium 3.8 mmol/L (3.5-5.1); Sodium 131 mmol/L (136-145)
[2022-10-09] MEDS: Levothyroxine Sodium 50 MCG TAB PO SCH (06:00)
[2022-10-09] MEDS: Ipratropium 200 Puff Oral Inhaler INH SCH (07:01)
[2022-10-09] MEDS: Carvedilol 3.125 MG TAB PO SCH (09:41)
[2022-10-09] MEDS: Cholecalciferol 1,000 UNITS (25 MCG) TAB PO SCH (09:42)
[2022-10-09] MEDS: Aspirin Chewable 81 MG TAB PO SCH (09:43)
[2022-10-09] MEDS: Furosemide 40 MG TAB PO SCH (09:43)
[2022-10-09] MEDS: Diclofenac 1% 100 GM GEL TP SCH ×2 (09:43→14:43)
[2022-10-09] MEDS: Sacubitril 24MG/Valsartan 26 MG TAB PO SCH (09:54)
[2022-10-09 12:43] VITALS: BP 111/55; TEMP 97.6
[2022-10-09] MEDS ORDERED: Ipratropium 200 Puff Oral Inhaler INH SCH (18:30)
== END 2022-10-09 16:21 | disposition home or self-care (01) | DRG 312 ==
LOC: ERS 12:38 → 2NO 17:39
PROVIDERS: ADMIT Internal Medicine; ATTEND Internal Medicine
DX: I95.2 Hypotension due to drugs (principal); I50.23 Acute on chronic systolic (congestive) heart failure; S22.31XA Fracture of one rib, right side, initial encounter for closed fracture; I13.0 Hypertensive heart and chronic kidney disease with heart failure and stage 1 through stage 4 chronic kidney disease, or unspecified chronic kidney disease; N17.9 Acute kidney failure, unspecified; J96.11 Chronic respiratory failure with hypoxia; Z66 Do not resuscitate; I25.10 Atherosclerotic heart disease of native coronary artery without angina pectoris; J84.10 Pulmonary fibrosis, unspecified; I48.91 Unspecified atrial fibrillation; N18.9 Chronic kidney disease, unspecified; E03.9 Hypothyroidism, unspecified; I45.10 Unspecified right bundle-branch block; T46.2X5A Adverse effect of other antidysrhythmic drugs, initial encounter; W19.XXXA Unspecified fall, initial encounter; Z79.82 Long term (current) use of aspirin; Z79.51 Long term (current) use of inhaled steroids; Z79.899 Other long term (current) drug therapy; Z79.52 Long term (current) use of systemic steroids; Y93.79 Activity, other specified sports and athletics; Z95.1 Presence of aortocoronary bypass graft
CPT/HCPCS: 36415; 71045; 71260; 80048; 80053; 80069; 81003; 82306; 82805; 83735; 83880; 84439; 84443; 84484; 85025; 87070; 87077; 87186; 87205; 93005; 93306; 94664; J0461; J1650; Q9967

== ENCOUNTER 2023-05-13 21:08 | Inpatient (IN) | payer MEDICARE, OTHER ==
[~2023-05-13 21:08] MED LIST: Iopamidol 370 76% 100 ML VIAL ONE
[2023-05-13] MEDS ORDERED: Cefepime 2 GM VIAL ONE (21:24)
[2023-05-13] MEDS ORDERED: Vancomycin 1 GM/200 ML (FROZEN) BAG ONE (21:24)
[2023-05-13] MEDS ORDERED: Sodium Chloride 0.9% 100 ML ONE (21:25)
[2023-05-13] MEDS ORDERED: Acetaminophen 500 MG TAB ONE (21:29)
[2023-05-13] MEDS ORDERED: Ondansetron PF 4 MG/2 ML Vial ONE (21:29)
[2023-05-13 21:47] LABS: Delete Auto Diff?? YES; Hematocrit 32.1 % (42.0-52.0); Manual Diff?? YES; Mean Corpuscular HGB CONC 31.2 g/dL (32.0-36.0); Mean Corpuscular Hemoglobin 27.2 pg (27.0-31.0); Mean Corpuscular Volume 87.2 fl (78.0-98.0); Mean Platelet Volume 11.1 fL (7.4-10.4); Platelet Count 242 10x3/uL (130-400); RBC Distribution Width 14.8 % (11.5-14.5); Red Blood Cell (RBC) Count 3.68 mill/uL (4.70-6.10); White Blood Cell (WBC) Count 30.9 10x3/uL (4.8-10.8)
[2023-05-13 22:10] LABS: ALT (SGPT) 17 U/L (8-55); AST (SGOT) 42 U/L (5-34); Albumin 3.2 g/dL (3.4-4.8); Alkaline Phosphatase 166 U/L (40-110); Anion Gap 14 mmol/L (10-20); BUN (Urea Nitrogen) 27 mg/dL (8.4-25.7); Bilirubin, Total 0.7 mg/dL (0.2-1.2); Calc. Creatinine Clearance 0 mL/min (70-130); Calcium 8.5 mg/dL (7.8-10.44); Carbon Dioxide 31 mmol/L (23-31); Chloride 103 mmol/L (98-107); Estimated GFR 43; Globulin 4.9 g/dL (2.4-3.5); Glucose 116 mg/dL (83-110); Protein, Total 8.1 g/dL (5.8-8.1); Sodium 144 mmol/L (136-145)
[2023-05-13 22:11] LABS: Band 3 % (5-11); CellaVision Operator ID lab.abc; Lymphocytes 9 % (21-51); Monocytes 4 % (0-10); Neutrophil 84 % (42-75); Platelet Adequacy Comment Platelets Normal; Total Cell Count 100
[2023-05-13 22:15] LABS: Troponin I 0.052 ng/mL (< 0.028)
[2023-05-13] MEDS ORDERED: Acetaminophen 325 MG TAB PO PRN (22:55)
[2023-05-13] MEDS ORDERED: Ondansetron PF 4 MG/2 ML Vial IVP PRN (22:55)
[2023-05-13] MEDS ORDERED: Ondansetron ODT 4 MG TAB PO PRN (22:55)
[2023-05-13] MEDS ORDERED: Acetaminophen 650 MG Suppository PR PRN (22:55)
[2023-05-13 22:58] LABS: Bacteria/HPF 1+ HPF (None Seen); Bilirubin Negative (Negative); Blood, Urine 3+ (Negative); CAUTI Indications for Culture Fever or rigors; Clarity Turbid (Clear); Glucose, Urine (Dipstick) Normal (Negative); Ketone, Urine Negative (Negative); Leukocyte 500 Leu/uL (Negative); Nitrite Negative (Negative); Protein, Urine (Dipstick) 200 mg/dL (Neg-Trace); RBC/HPF Greater than 50 HPF (0-3); Specific Gravity, Urine 1.016 (1.002-1.036); Squamous Epithelial 0-3 HPF (0-3); Urobilinogen 3 mg/dL (Less than 2); WBC/HPF Greater than 50 HPF (0-3); pH, Urine 5.5 (5.0-9.0)
[2023-05-13 22:59] LABS: Urine Culture Reflex Yes Yes
[2023-05-13] MEDS ORDERED: Ipratropium/Albuterol 3 ML NEB NEB PRN (23:01)
[2023-05-13] MEDS ORDERED: Aspirin Chewable 81 MG TAB ONE (23:03)
[2023-05-13] MEDS ORDERED: Ipratropium/Albuterol 3 ML NEB ONE (23:12)
[2023-05-13] MEDS ORDERED: Furosemide 40 MG/4 ML VIAL SLOW IVP SCH (23:13)
[2023-05-13 23:16] LABS: SARS-CoV-2 NAA Rapid Test Not Detected (NotDetected)
[2023-05-14] MEDS ORDERED: Electrolyte Replacement Protocol 1 EACH FS PRN (00:45)
[2023-05-14 00:50] LABS: Lactic Acid 1.1 mmol/L (0.5-2.2)
[2023-05-14] MEDS: Furosemide 40 MG/4 ML VIAL SLOW IVP SCH ×3 (01:24→13:06)
[2023-05-14] MEDS: Doxycycline 100 MG in Sodium Chloride 0.9% 100 ML IVPB SCH ×2 (01:30→13:06)
[2023-05-14] MEDS: Ipratropium/Albuterol 3 ML NEB NEB SCH ×6 (01:52→21:38)
[2023-05-14 02:16] VITALS: BMI 21.2
[2023-05-14 02:17] LABS: Hematocrit 25.3 % (42.0-52.0); Hemoglobin 7.7 g/dL (14.0-18.0); Mean Corpuscular HGB CONC 30.4 g/dL (32.0-36.0); Mean Corpuscular Hemoglobin 26.9 pg (27.0-31.0); Mean Corpuscular Volume 88.5 fl (78.0-98.0); Mean Platelet Volume 10.8 fL (7.4-10.4); Platelet Count 154 10x3/uL (130-400); RBC Distribution Width 14.8 % (11.5-14.5); Red Blood Cell (RBC) Count 2.86 mill/uL (4.70-6.10); White Blood Cell (WBC) Count 36.6 10x3/uL (4.8-10.8)
[2023-05-14 02:27] LABS: Delete Auto Diff?? YES; Manual Diff?? YES
[2023-05-14 02:50] LABS: Band 5 % (5-11); CellaVision Operator ID lab.abc; Monocytes 4 % (0-10); Neutrophil 91 % (42-75); Platelet Adequacy Comment Platelets Normal; RBC Morphology Within Normal Limits; Total Cell Count 100
[2023-05-14 03:10] LABS: Anion Gap 14 mmol/L (10-20); BUN (Urea Nitrogen) 30 mg/dL (8.4-25.7); Calc. Creatinine Clearance 24 mL/min (70-130); Calcium 7.9 mg/dL (7.8-10.44); Carbon Dioxide 28 mmol/L (23-31); Chloride 105 mmol/L (98-107); Estimated GFR 37; Glucose 106 mg/dL (83-110); Magnesium 1.7 mg/dL (1.6-2.6); Potassium 3.6 mmol/L (3.5-5.1); Sodium 143 mmol/L (136-145)
[2023-05-14 06:03] LABS: Troponin I 0.718 ng/mL (< 0.028)
[2023-05-14] MEDS ORDERED: Magnesium 2 GM/50 ML(in water) 2 GM in Premix 1 BAG IVPB SCH (08:00)
[2023-05-14] MEDS ORDERED: FLU VACC QS2023(65UP)/MF59C/PF 60 MCG/0.5 ML SYRINGE IM ONE (09:00)
[2023-05-14] MEDS ORDERED: Aspirin 81 mg Enteric Coated Tablet PO SCH (10:30)
[2023-05-14] MEDS: Aspirin 81 mg Enteric Coated Tablet PO SCH (13:06)
[2023-05-14] MEDS ORDERED: Albuterol 200 PUFF (6.7GM INHALER) INH PRN (16:13)
[2023-05-14] MEDS: Cefepime 1 GM in Sodium Chloride 0.9% 100 ML IVPB SCH (20:24)
[2023-05-14] MEDS: Atorvastatin Calcium 20 MG TAB PO SCH (20:24)
[2023-05-14] MEDS ORDERED: Vancomycin 1 GM in Premix 1 BAG IVPB SCH (21:00)
[2023-05-14] MEDS ORDERED: Vancomycin Dose by Levels Sliding Scale (Wt <71) FS SCH (21:00)
[2023-05-14] MEDS ORDERED: Atorvastatin Calcium 10 MG TAB PO SCH (21:00)
[2023-05-14 22:52] LABS: Legionella Urinary Ag Negative (Negative); Strep pneumo Urine Ag NEGATIVE (NEGATIVE)
[2023-05-14 23:24] LABS: Vancomycin, Random 10.9 ug/mL (See Comment)
[2023-05-14] MEDS ORDERED: Vancomycin HCl 750 MG in Sodium Chloride 0.9% 250 ML 250 ML IVPB SCH (23:45)
[2023-05-15] MEDS: Ipratropium/Albuterol 3 ML NEB NEB SCH ×6 (01:44→23:08)
[2023-05-15] MEDS: Doxycycline 100 MG in Sodium Chloride 0.9% 100 ML IVPB SCH ×2 (01:57→13:02)
[2023-05-15 04:43] LABS: #Eosinphils 0.7 thou/uL (0.0-0.7); #Monocytes 1.3 thou/uL (0.11-0.59); #Neutrophils 10.3 thou/uL (1.40-6.50); %Basophils 0.1 % (0.0-1.0); %Eosinophils 4.8 % (0.0-10.0); %Lymphocytes 15.7 % (21.0-51.0); %Neutrophils 69.9 % (42.0-75.0); Hematocrit 25.4 % (42.0-52.0); Hemoglobin 7.6 g/dL (14.0-18.0); Mean Corpuscular HGB CONC 29.9 g/dL (32.0-36.0); Mean Corpuscular Volume 90.1 fl (78.0-98.0); Mean Platelet Volume 11.4 fL (7.4-10.4); Platelet Count 149 10x3/uL (130-400); RBC Distribution Width 15.3 % (11.5-14.5); Red Blood Cell (RBC) Count 2.82 mill/uL (4.70-6.10); White Blood Cell (WBC) Count 14.7 10x3/uL (4.8-10.8)
[2023-05-15 05:10] LABS: Anion Gap 11 mmol/L (10-20); BUN (Urea Nitrogen) 40 mg/dL (8.4-25.7); Calc. Creatinine Clearance 16 mL/min (70-130); Calcium 7.7 mg/dL (7.8-10.44); Carbon Dioxide 30 mmol/L (23-31); Chloride 102 mmol/L (98-107); Estimated GFR 22; Glucose 94 mg/dL (83-110); Magnesium 2.4 mg/dL (1.6-2.6); Potassium 4.1 mmol/L (3.5-5.1); Sodium 139 mmol/L (136-145)
[2023-05-15] MEDS: Furosemide 40 MG/4 ML VIAL SLOW IVP SCH (06:21)
[2023-05-15] MEDS: Levothyroxine Sodium 75 MCG TAB PO SCH (06:21)
[2023-05-15] MEDS: Aspirin 81 mg Enteric Coated Tablet PO SCH (07:58)
[2023-05-15] MEDS ORDERED: Albumin 25% 25 GM/100 ML BOT IVPB SCH (08:30)
[2023-05-15] MEDS ORDERED: Aspirin Chewable 81 MG TAB PO SCH (09:00)
[2023-05-15] MEDS: Lactated Ringer's 1,000 ML IV SCH ×2 (10:35→18:29)
[2023-05-15 14:49] LABS: Anion Gap 10 mmol/L (10-20); BUN (Urea Nitrogen) 41 mg/dL (8.4-25.7); Calc. Creatinine Clearance 15 mL/min (70-130); Calcium 7.8 mg/dL (7.8-10.44); Carbon Dioxide 30 mmol/L (23-31); Chloride 102 mmol/L (98-107); Estimated GFR 21; Glucose 124 mg/dL (83-110); Potassium 4.1 mmol/L (3.5-5.1); Sodium 138 mmol/L (136-145)
[2023-05-15] MEDS: Cefepime 1 GM in Sodium Chloride 0.9% 100 ML IVPB SCH (22:07)
[2023-05-15] MEDS: Atorvastatin Calcium 20 MG TAB PO SCH (22:08)
[2023-05-16] MEDS: Doxycycline 100 MG in Sodium Chloride 0.9% 100 ML IVPB SCH (01:11)
[2023-05-16] MEDS: Lactated Ringer's 1,000 ML IV SCH ×2 (01:12→10:45)
[2023-05-16] MEDS: Ipratropium/Albuterol 3 ML NEB NEB SCH ×5 (03:46→21:43)
[2023-05-16 05:05] LABS: #Eosinphils 1.2 thou/uL (0.0-0.7); #Monocytes 1.3 thou/uL (0.11-0.59); #Neutrophils 6.4 thou/uL (1.40-6.50); %Basophils 0.1 % (0.0-1.0); %Eosinophils 10.2 % (0.0-10.0); %Lymphocytes 21.1 % (21.0-51.0); %Monocytes 11.7 % (0.0-10.0); %Neutrophils 56.6 % (42.0-75.0); Hematocrit 23.5 % (42.0-52.0); Hemoglobin 7.1 g/dL (14.0-18.0); Mean Corpuscular HGB CONC 30.2 g/dL (32.0-36.0); Mean Corpuscular Hemoglobin 27.1 pg (27.0-31.0); Mean Corpuscular Volume 89.7 fl (78.0-98.0); Mean Platelet Volume 11.5 fL (7.4-10.4); Platelet Count 151 10x3/uL (130-400); RBC Distribution Width 15.5 % (11.5-14.5); Red Blood Cell (RBC) Count 2.62 mill/uL (4.70-6.10); White Blood Cell (WBC) Count 11.3 10x3/uL (4.8-10.8)
[2023-05-16 05:28] LABS: Anion Gap 11 mmol/L (10-20); BUN (Urea Nitrogen) 42 mg/dL (8.4-25.7); Calc. Creatinine Clearance 14 mL/min (70-130); Calcium 7.7 mg/dL (7.8-10.44); Carbon Dioxide 29 mmol/L (23-31); Chloride 101 mmol/L (98-107); Estimated GFR 20; Glucose 89 mg/dL (83-110); Sodium 137 mmol/L (136-145)
[2023-05-16] MEDS: Levothyroxine Sodium 75 MCG TAB PO SCH (06:22)
[2023-05-16] MEDS: LevoFLOXacin 250 MG TAB PO SCH (14:22)
[2023-05-16] MEDS: Atorvastatin Calcium 20 MG TAB PO SCH (21:12)
[2023-05-17] MEDS: Ipratropium/Albuterol 3 ML NEB NEB SCH ×7 (01:11→22:57)
[2023-05-17 05:02] LABS: #Eosinphils 1.4 thou/uL (0.0-0.7); #Monocytes 1.1 thou/uL (0.11-0.59); #Neutrophils 5.9 thou/uL (1.40-6.50); %Basophils 0.1 % (0.0-1.0); %Eosinophils 13.4 % (0.0-10.0); %Lymphocytes 18.3 % (21.0-51.0); %Neutrophils 56.9 % (42.0-75.0); Hematocrit 23.8 % (42.0-52.0); Hemoglobin 7.4 g/dL (14.0-18.0); Mean Corpuscular HGB CONC 31.1 g/dL (32.0-36.0); Mean Corpuscular Hemoglobin 27.5 pg (27.0-31.0); Mean Corpuscular Volume 88.5 fl (78.0-98.0); Mean Platelet Volume 11.1 fL (7.4-10.4); Platelet Count 168 10x3/uL (130-400); RBC Distribution Width 15.2 % (11.5-14.5); Red Blood Cell (RBC) Count 2.69 mill/uL (4.70-6.10); White Blood Cell (WBC) Count 10.4 10x3/uL (4.8-10.8)
[2023-05-17 05:34] LABS: Anion Gap 10 mmol/L (10-20); BUN (Urea Nitrogen) 41 mg/dL (8.4-25.7); Calc. Creatinine Clearance 16 mL/min (70-130); Calcium 7.8 mg/dL (7.8-10.44); Carbon Dioxide 28 mmol/L (23-31); Chloride 102 mmol/L (98-107); Estimated GFR 23; Glucose 75 mg/dL (83-110); Potassium 4.2 mmol/L (3.5-5.1); Sodium 136 mmol/L (136-145)
[2023-05-17] MEDS: Levothyroxine Sodium 75 MCG TAB PO SCH (05:56)
[2023-05-17] MEDS: Aspirin 81 mg Enteric Coated Tablet PO SCH (09:51)
[2023-05-17] MEDS: LevoFLOXacin 250 MG TAB PO SCH (14:16)
[2023-05-17] MEDS: Atorvastatin Calcium 20 MG TAB PO SCH (21:42)
[2023-05-18] MEDS: Ipratropium/Albuterol 3 ML NEB NEB SCH ×6 (03:10→22:50)
[2023-05-18 04:58] LABS: #Eosinphils 1.3 thou/uL (0.0-0.7); #Monocytes 1.1 thou/uL (0.11-0.59); %Basophils 0.1 % (0.0-1.0); %Eosinophils 13.9 % (0.0-10.0); %Lymphocytes 20.4 % (21.0-51.0); %Monocytes 11.8 % (0.0-10.0); %Neutrophils 53.5 % (42.0-75.0); Hematocrit 23.2 % (42.0-52.0); Hemoglobin 7.1 g/dL (14.0-18.0); Mean Corpuscular HGB CONC 30.6 g/dL (32.0-36.0); Mean Corpuscular Hemoglobin 26.8 pg (27.0-31.0); Mean Corpuscular Volume 87.5 fl (78.0-98.0); Mean Platelet Volume 10.3 fL (7.4-10.4); Platelet Count 154 10x3/uL (130-400); RBC Distribution Width 15.1 % (11.5-14.5); Red Blood Cell (RBC) Count 2.65 mill/uL (4.70-6.10); White Blood Cell (WBC) Count 9.3 10x3/uL (4.8-10.8)
[2023-05-18 05:31] LABS: Anion Gap 9 mmol/L (10-20); BUN (Urea Nitrogen) 45 mg/dL (8.4-25.7); Calc. Creatinine Clearance 17 mL/min (70-130); Calcium 7.8 mg/dL (7.8-10.44); Carbon Dioxide 27 mmol/L (23-31); Chloride 102 mmol/L (98-107); Estimated GFR 24; Glucose 87 mg/dL (83-110); Sodium 134 mmol/L (136-145)
[2023-05-18] MEDS: Levothyroxine Sodium 75 MCG TAB PO SCH (06:16)
[2023-05-18] MEDS: Aspirin 81 mg Enteric Coated Tablet PO SCH (10:11)
[2023-05-18] MEDS ORDERED: Furosemide 40 MG TAB PO SCH (11:15)
[2023-05-18] MEDS: LevoFLOXacin 250 MG TAB PO SCH (14:50)
[2023-05-18] MEDS: Atorvastatin Calcium 20 MG TAB PO SCH (21:00)
[2023-05-18 22:03] LABS: Iron Binding Capacity, Total 160 mcg/dL (261-462)
[2023-05-19] MEDS: Ipratropium/Albuterol 3 ML NEB NEB SCH ×6 (03:11→22:24)
[2023-05-19 03:14] LABS: Iron 56 ug/dL (65-175)
[2023-05-19 05:04] LABS: #Eosinphils 1.3 thou/uL (0.0-0.7); #Monocytes 1.1 thou/uL (0.11-0.59); #Neutrophils 5.2 thou/uL (1.40-6.50); %Basophils 0.1 % (0.0-1.0); %Eosinophils 13.6 % (0.0-10.0); %Lymphocytes 19.3 % (21.0-51.0); %Monocytes 11.7 % (0.0-10.0); Hematocrit 23.4 % (42.0-52.0); Hemoglobin 7.3 g/dL (14.0-18.0); Mean Corpuscular HGB CONC 31.2 g/dL (32.0-36.0); Mean Corpuscular Hemoglobin 27.2 pg (27.0-31.0); Mean Corpuscular Volume 87.3 fl (78.0-98.0); Mean Platelet Volume 10.8 fL (7.4-10.4); Platelet Count 160 10x3/uL (130-400); RBC Distribution Width 15.4 % (11.5-14.5); Red Blood Cell (RBC) Count 2.68 mill/uL (4.70-6.10); White Blood Cell (WBC) Count 9.4 10x3/uL (4.8-10.8)
[2023-05-19] MEDS: Levothyroxine Sodium 75 MCG TAB PO SCH (05:15)
[2023-05-19 05:31] LABS: Anion Gap 9 mmol/L (10-20); BUN (Urea Nitrogen) 44 mg/dL (8.4-25.7); Calc. Creatinine Clearance 19 mL/min (70-130); Calcium 7.9 mg/dL (7.8-10.44); Carbon Dioxide 30 mmol/L (23-31); Chloride 102 mmol/L (98-107); Estimated GFR 27; Glucose 83 mg/dL (83-110); Potassium 4.4 mmol/L (3.5-5.1); Sodium 137 mmol/L (136-145)
[2023-05-19] MEDS: Aspirin 81 mg Enteric Coated Tablet PO SCH (10:07)
[2023-05-19] MEDS: Furosemide 40 MG TAB PO SCH (10:07)
[2023-05-19] MEDS: Atorvastatin Calcium 20 MG TAB PO SCH (20:38)
[2023-05-20] MEDS: Ipratropium/Albuterol 3 ML NEB NEB SCH ×4 (03:34→19:35)
[2023-05-20 04:45] LABS: #Eosinphils 1.6 thou/uL (0.0-0.7); #Monocytes 1.4 thou/uL (0.11-0.59); #Neutrophils 5.3 thou/uL (1.40-6.50); %Basophils 0.1 % (0.0-1.0); %Eosinophils 15.2 % (0.0-10.0); %Lymphocytes 20.2 % (21.0-51.0); %Monocytes 13.1 % (0.0-10.0); Hematocrit 22.2 % (42.0-52.0); Hemoglobin 6.8 g/dL (14.0-18.0); Mean Corpuscular HGB CONC 30.6 g/dL (32.0-36.0); Mean Corpuscular Volume 88.1 fl (78.0-98.0); Mean Platelet Volume 10.7 fL (7.4-10.4); Platelet Count 151 10x3/uL (130-400); RBC Distribution Width 15.5 % (11.5-14.5); Red Blood Cell (RBC) Count 2.52 mill/uL (4.70-6.10); White Blood Cell (WBC) Count 10.5 10x3/uL (4.8-10.8)
[2023-05-20] MEDS: Levothyroxine Sodium 75 MCG TAB PO SCH (04:50)
[2023-05-20 05:04] LABS: Anion Gap 10 mmol/L (10-20); BUN (Urea Nitrogen) 42 mg/dL (8.4-25.7); Calc. Creatinine Clearance 22 mL/min (70-130); Carbon Dioxide 28 mmol/L (23-31); Chloride 104 mmol/L (98-107); Estimated GFR 34; Glucose 80 mg/dL (83-110); Potassium 4.5 mmol/L (3.5-5.1); Sodium 137 mmol/L (136-145)
[2023-05-20] MEDS: Furosemide 40 MG TAB PO SCH (08:43)
[2023-05-20] MEDS: Aspirin 81 mg Enteric Coated Tablet PO SCH (08:43)
[2023-05-20] MEDS ORDERED: LevoFLOXacin 250 MG TAB PO SCH ×2 (09:00→10:30)
[2023-05-20] MEDS ORDERED: Pantoprazole 40 MG VIAL IVP SCH (12:09)
[2023-05-20] MEDS ORDERED: Furosemide 40 MG/4 ML VIAL SLOW IVP SCH (13:45)
[2023-05-20] MEDS: Atorvastatin Calcium 20 MG TAB PO SCH (21:22)
[2023-05-20] MEDS: Senokot S 8.6-50 MG TAB PO SCH (21:22)
[2023-05-20] MEDS: Pantoprazole 40 MG VIAL IVP SCH (21:22)
[2023-05-21 04:49] LABS: #Eosinphils 1.7 thou/uL (0.0-0.7); #Monocytes 1.4 thou/uL (0.11-0.59); #Neutrophils 6.3 thou/uL (1.40-6.50); %Basophils 0.2 % (0.0-1.0); %Eosinophils 14.5 % (0.0-10.0); %Lymphocytes 20.1 % (21.0-51.0); %Monocytes 11.6 % (0.0-10.0); %Neutrophils 53.1 % (42.0-75.0); Hematocrit 25.3 % (42.0-52.0); Hemoglobin 7.8 g/dL (14.0-18.0); Mean Corpuscular HGB CONC 30.8 g/dL (32.0-36.0); Mean Corpuscular Volume 87.5 fl (78.0-98.0); Platelet Count 144 10x3/uL (130-400); RBC Distribution Width 15.5 % (11.5-14.5); Red Blood Cell (RBC) Count 2.89 mill/uL (4.70-6.10); White Blood Cell (WBC) Count 11.8 10x3/uL (4.8-10.8)
[2023-05-21 05:12] LABS: Anion Gap 10 mmol/L (10-20); BUN (Urea Nitrogen) 42 mg/dL (8.4-25.7); Calc. Creatinine Clearance 24 mL/min (70-130); Calcium 8.1 mg/dL (7.8-10.44); Carbon Dioxide 29 mmol/L (23-31); Chloride 105 mmol/L (98-107); Estimated GFR 37; Glucose 69 mg/dL (83-110); Sodium 139 mmol/L (136-145)
[2023-05-21] MEDS: Levothyroxine Sodium 75 MCG TAB PO SCH (06:12)
[2023-05-21] MEDS: Ipratropium/Albuterol 3 ML NEB NEB SCH ×3 (06:57→19:06)
[2023-05-21] MEDS: Senokot S 8.6-50 MG TAB PO SCH ×2 (08:31→20:49)
[2023-05-21] MEDS: Polyethylene Glycol 3350 17 GM Packet PO SCH (08:31)
[2023-05-21] MEDS ORDERED: Ipratropium/Albuterol 3 ML NEB ONE (08:55)
[2023-05-21] MEDS ORDERED: Ketamine In 0.9 % NaCl 50 MG/5 ML SYRINGE ONE (08:55)
[2023-05-21] MEDS ORDERED: Dextrose 50% Abboject 50 ML SYRINGE ONE (08:57)
[2023-05-21] MEDS: Pantoprazole 40 MG VIAL IVP SCH (11:10)
[2023-05-21] MEDS: Furosemide 40 MG TAB PO SCH (11:10)
[2023-05-21] MEDS ORDERED: EPOETIN ALFA-EPBX (ESRD) 10,000 UNITS/ML VIAL SC SCH (19:00)
[2023-05-21] MEDS: Atorvastatin Calcium 20 MG TAB PO SCH (20:49)
[2023-05-22 04:49] LABS: #Eosinphils 1.6 thou/uL (0.0-0.7); #Monocytes 1.4 thou/uL (0.11-0.59); #Neutrophils 6.3 thou/uL (1.40-6.50); %Basophils 0.1 % (0.0-1.0); %Eosinophils 13.6 % (0.0-10.0); %Lymphocytes 21.3 % (21.0-51.0); %Monocytes 11.6 % (0.0-10.0); %Neutrophils 53.1 % (42.0-75.0); Hematocrit 25.1 % (42.0-52.0); Mean Corpuscular HGB CONC 31.9 g/dL (32.0-36.0); Mean Corpuscular Volume 87.8 fl (78.0-98.0); Mean Platelet Volume 10.9 fL (7.4-10.4); Platelet Count 142 10x3/uL (130-400); RBC Distribution Width 15.8 % (11.5-14.5); Red Blood Cell (RBC) Count 2.86 mill/uL (4.70-6.10); White Blood Cell (WBC) Count 11.8 10x3/uL (4.8-10.8)
[2023-05-22 05:13] LABS: Anion Gap 10 mmol/L (10-20); BUN (Urea Nitrogen) 43 mg/dL (8.4-25.7); Calc. Creatinine Clearance 24 mL/min (70-130); Carbon Dioxide 29 mmol/L (23-31); Chloride 104 mmol/L (98-107); Estimated GFR 36; Glucose 93 mg/dL (83-110); Potassium 5.1 mmol/L (3.5-5.1); Sodium 138 mmol/L (136-145)
[2023-05-22] MEDS: Levothyroxine Sodium 75 MCG TAB PO SCH (05:58)
[2023-05-22] MEDS ORDERED: LevoFLOXacin 500 MG TAB PO SCH (06:00)
[2023-05-22] MEDS: Ipratropium/Albuterol 3 ML NEB NEB SCH ×2 (07:09→12:19)
[2023-05-22] MEDS: Furosemide 40 MG TAB PO SCH (08:23)
[2023-05-22] MEDS: Polyethylene Glycol 3350 17 GM Packet PO SCH (08:23)
[2023-05-22] MEDS: Senokot S 8.6-50 MG TAB PO SCH (08:23)
[2023-05-22 11:39] VITALS: BP 136/65; TEMP 97.5
== END 2023-05-22 14:15 | disposition home or self-care (01) | DRG 871 ==
LOC: ERS 21:08 → ERHOLD 22:55 → 2NO 05-14 00:08 → OBSVTOIN 05-14 14:50 → 2NO 05-14 18:12
PROVIDERS: ADMIT Student in an Organized Health Care Education/Training Program; ATTEND Internal Medicine
PROC: 30233J1 Transfusion of Nonautologous Serum Albumin into Peripheral Vein, Percutaneous Approach (ICD-10-PCS; 2023-05-15)
PROC: 3E03329 Introduction of Other Anti-infective into Peripheral Vein, Percutaneous Approach (ICD-10-PCS; 2023-05-15)
PROC: 30233N1 Transfusion of Nonautologous Red Blood Cells into Peripheral Vein, Percutaneous Approach (ICD-10-PCS; 2023-05-20)
PROC: 0DJ08ZZ Inspection of Upper Intestinal Tract, Via Natural or Artificial Opening Endoscopic (ICD-10-PCS; principal; 2023-05-21)
DX: A40.0 Sepsis due to streptococcus, group A (principal); I21.A1 Myocardial infarction type 2; I50.43 Acute on chronic combined systolic (congestive) and diastolic (congestive) heart failure; J18.9 Pneumonia, unspecified organism; J96.21 Acute and chronic respiratory failure with hypoxia; N39.0 Urinary tract infection, site not specified; N17.9 Acute kidney failure, unspecified; I13.0 Hypertensive heart and chronic kidney disease with heart failure and stage 1 through stage 4 chronic kidney disease, or unspecified chronic kidney disease; R65.20 Severe sepsis without septic shock; I25.10 Atherosclerotic heart disease of native coronary artery without angina pectoris; J84.10 Pulmonary fibrosis, unspecified; I45.10 Unspecified right bundle-branch block; N18.30 Chronic kidney disease, stage 3 unspecified; D63.1 Anemia in chronic kidney disease; E03.9 Hypothyroidism, unspecified; Z95.1 Presence of aortocoronary bypass graft; Z79.899 Other long term (current) drug therapy; Z79.82 Long term (current) use of aspirin; Z79.890 Hormone replacement therapy; Z98.41 Cataract extraction status, right eye; Z98.42 Cataract extraction status, left eye; Z11.52 Encounter for screening for COVID-19; Z99.81 Dependence on supplemental oxygen; E78.00 Pure hypercholesterolemia, unspecified; I25.5 Ischemic cardiomyopathy; K59.00 Constipation, unspecified; I34.0 Nonrheumatic mitral (valve) insufficiency
CPT/HCPCS: 36415; 36416; 36430; 71045; 71260; 80048; 80053; 80202; 81001; 82728; 83540; 83550; 83605; 83735; 83880; 84443; 84484; 85025; 86850; 86900; 86901; 87040; 87077; 87081; 87086; 87149; 87186; 87449; 87899; 93005; 93306; 94640; 96365; 96367; 96372; 96375; 96376; C9113; G0378; J0692; J1650; J1940; J2405; J3370; J3370-JW; J3475; J3490; J7050; J7120; J7611; J7620; J7999; P9016; P9047; Q5105; Q9967

== ENCOUNTER 2023-05-26 18:54 | Inpatient (IN) | payer MEDICARE, OTHER ==
[2023-05-26 19:20] LABS: Hematocrit 31.2 % (42.0-52.0); Hemoglobin 9.7 g/dL (14.0-18.0); Manual Diff?? YES; Mean Corpuscular HGB CONC 31.1 g/dL (32.0-36.0); Mean Corpuscular Hemoglobin 27.2 pg (27.0-31.0); Mean Corpuscular Volume 87.6 fl (78.0-98.0); Mean Platelet Volume 10.6 fL (7.4-10.4); Platelet Count 195 10x3/uL (130-400); RBC Distribution Width 16.2 % (11.5-14.5); Red Blood Cell (RBC) Count 3.56 mill/uL (4.70-6.10); White Blood Cell (WBC) Count 14.5 10x3/uL (4.8-10.8)
[2023-05-26 19:26] LABS: Delete Auto Diff?? YES
[2023-05-26 19:48] LABS: Band 6 % (5-11); Burr Cells SLIGHT = 2-5 cells HPF (0-1); CellaVision Operator ID LAB.KB; Eosinophils 10 % (0-10); Hypochromia SLIGHT = 6-15 cells HPF (0-5); Lymphocytes 14 % (21-51); Monocytes 2 % (0-10); Neutrophil 67 % (42-75); Ovalocytes SLIGHT = 2-5 cells HPF (0-1); Platelet Adequacy Comment Platelets Normal; Polychromasia SLIGHT = 2-3 cells HPF (0-2); Reactive Lymphocytes 1 % (0-10); Smudge Cells 8.9 %; Total Cell Count 101
[2023-05-26 19:52] LABS: ALT (SGPT) 11 U/L (8-55); AST (SGOT) 24 U/L (5-34); Albumin 2.8 g/dL (3.4-4.8); Alkaline Phosphatase 82 U/L (40-110); Anion Gap 10 mmol/L (10-20); BUN (Urea Nitrogen) 40 mg/dL (8.4-25.7); Bilirubin, Total 0.4 mg/dL (0.2-1.2); Calc. Creatinine Clearance 0 mL/min (70-130); Calcium 8.2 mg/dL (7.8-10.44); Carbon Dioxide 30 mmol/L (23-31); Chloride 101 mmol/L (98-107); Estimated GFR 32; Globulin 4.5 g/dL (2.4-3.5); Glucose 91 mg/dL (83-110); Protein, Total 7.3 g/dL (5.8-8.1); Sodium 136 mmol/L (136-145)
[2023-05-26] MEDS ORDERED: Furosemide 40 MG/4 ML VIAL ONE (19:52)
[2023-05-26] MEDS ORDERED: Vancomycin 1 GM/200 ML (FROZEN) BAG ONE (20:06)
[2023-05-26] MEDS ORDERED: Cefepime 2 GM VIAL ONE (20:06)
[2023-05-26] MEDS ORDERED: Sodium Chloride 0.9% 100 ML ONE (20:08)
[2023-05-26] MEDS ORDERED: Ipratropium/Albuterol 3 ML NEB ONE (20:36)
[2023-05-26] MEDS ORDERED: Calcium Carbonate 500 MG ChewTAB PO PRN (21:59)
[2023-05-26] MEDS ORDERED: Acetaminophen 325 MG TAB PO PRN (21:59)
[2023-05-26] MEDS ORDERED: Ondansetron ODT 4 MG TAB PO PRN (21:59)
[2023-05-26] MEDS ORDERED: Senokot S 8.6-50 MG TAB PO PRN (21:59)
[2023-05-26] MEDS ORDERED: Doxycycline 100 MG CAP PO SCH (22:15)
[2023-05-26] MEDS ORDERED: LevoFLOXacin 500 mg/D5W 500 MG in Premix 1 BAG IVPB SCH (22:15)
[2023-05-27] MEDS ORDERED: LevoFLOXacin 500 mg/D5W 100 ML BAG ONE (02:39)
[2023-05-27] MEDS ORDERED: Doxycycline 100 MG CAP ONE ×2 (02:39→08:48)
[2023-05-27 03:41] LABS: #Basophils 0.1 thou/uL (0.0-0.2); #Eosinphils 1.4 thou/uL (0.0-0.7); #Monocytes 1.4 thou/uL (0.11-0.59); #Neutrophils 7.4 thou/uL (1.40-6.50); %Basophils 0.5 % (0.0-1.0); %Eosinophils 10.9 % (0.0-10.0); %Lymphocytes 18.4 % (21.0-51.0); %Monocytes 10.8 % (0.0-10.0); Hematocrit 25.9 % (42.0-52.0); Hemoglobin 8.1 g/dL (14.0-18.0); Mean Corpuscular HGB CONC 31.3 g/dL (32.0-36.0); Mean Corpuscular Hemoglobin 27.4 pg (27.0-31.0); Mean Corpuscular Volume 87.5 fl (78.0-98.0); Mean Platelet Volume 10.6 fL (7.4-10.4); Platelet Count 160 10x3/uL (130-400); RBC Distribution Width 16.2 % (11.5-14.5); Red Blood Cell (RBC) Count 2.96 mill/uL (4.70-6.10); White Blood Cell (WBC) Count 12.5 10x3/uL (4.8-10.8)
[2023-05-27 04:07] LABS: Anion Gap 12 mmol/L (10-20); BUN (Urea Nitrogen) 39 mg/dL (8.4-25.7); Calc. Creatinine Clearance 27 mL/min (70-130); Carbon Dioxide 28 mmol/L (23-31); Chloride 101 mmol/L (98-107); Estimated GFR 36; Glucose 107 mg/dL (83-110); Potassium 4.8 mmol/L (3.5-5.1); Sodium 136 mmol/L (136-145)
[2023-05-27] MEDS ORDERED: Levothyroxine Sodium 75 MCG TAB ONE (06:12)
[2023-05-27] MEDS: Levothyroxine Sodium 75 MCG TAB PO SCH (06:15)
[2023-05-27] MEDS ORDERED: Heparin 5,000 UNITS/ML VIAL ONE (08:48)
[2023-05-27] MEDS ORDERED: Furosemide 40 MG/4 ML VIAL ONE (08:48)
[2023-05-27] MEDS ORDERED: Famotidine 20 MG TAB ONE (08:49)
[2023-05-27] MEDS ORDERED: LevoFLOXacin 500 mg/D5W 500 MG in Premix 1 BAG IVPB SCH (09:00)
[2023-05-27] MEDS: Doxycycline 100 MG CAP PO SCH ×2 (09:54→21:00)
[2023-05-27] MEDS: Famotidine 20 MG TAB PO SCH (09:54)
[2023-05-27] MEDS: Heparin 5,000 UNITS/ML VIAL SC SCH ×3 (09:55→21:00)
[2023-05-27] MEDS: Furosemide 40 MG/4 ML VIAL SLOW IVP SCH (09:55)
[2023-05-27] MEDS ORDERED: Ondansetron ODT 4 MG TAB ONE (11:53)
[2023-05-27] MEDS: Budesonide 0.5 MG/2 ML NEB INH SCH ×2 (13:08→18:43)
[2023-05-27] MEDS: Ipratropium/Albuterol 3 ML NEB NEB PRN (18:41)
[2023-05-27] MEDS: hydrALAZINE 10 MG TAB PO SCH (21:00)
[2023-05-27] MEDS: Atorvastatin Calcium 20 MG TAB PO SCH (21:00)
[2023-05-27] MEDS: Isosorbide Dinitrate 5 MG TAB PO SCH (21:01)
[2023-05-28 04:22] LABS: #Basophils 0.1 thou/uL (0.0-0.2); #Eosinphils 1.7 thou/uL (0.0-0.7); #Monocytes 1.3 thou/uL (0.11-0.59); %Basophils 0.8 % (0.0-1.0); %Lymphocytes 20.5 % (21.0-51.0); %Monocytes 11.2 % (0.0-10.0); %Neutrophils 52.1 % (42.0-75.0); Hematocrit 27.1 % (42.0-52.0); Hemoglobin 8.2 g/dL (14.0-18.0); Mean Corpuscular HGB CONC 30.3 g/dL (32.0-36.0); Mean Corpuscular Hemoglobin 27.4 pg (27.0-31.0); Mean Corpuscular Volume 90.6 fl (78.0-98.0); Mean Platelet Volume 10.7 fL (7.4-10.4); Platelet Count 170 10x3/uL (130-400); RBC Distribution Width 16.6 % (11.5-14.5); Red Blood Cell (RBC) Count 2.99 mill/uL (4.70-6.10); White Blood Cell (WBC) Count 11.4 10x3/uL (4.8-10.8)
[2023-05-28 04:53] LABS: ALT (SGPT) 7 U/L (8-55); AST (SGOT) 14 U/L (5-34); Albumin 2.5 g/dL (3.4-4.8); Alkaline Phosphatase 68 U/L (40-110); Anion Gap 10 mmol/L (10-20); BUN (Urea Nitrogen) 39 mg/dL (8.4-25.7); Bilirubin, Total 0.4 mg/dL (0.2-1.2); Calc. Creatinine Clearance 26 mL/min (70-130); Carbon Dioxide 30 mmol/L (23-31); Chloride 102 mmol/L (98-107); Estimated GFR 35; Globulin 3.6 g/dL (2.4-3.5); Glucose 72 mg/dL (83-110); Magnesium 1.8 mg/dL (1.6-2.6); Potassium 5.1 mmol/L (3.5-5.1); Protein, Total 6.1 g/dL (5.8-8.1); Sodium 137 mmol/L (136-145)
[2023-05-28] MEDS: Levothyroxine Sodium 75 MCG TAB PO SCH (06:01)
[2023-05-28] MEDS: Budesonide 0.5 MG/2 ML NEB INH SCH ×2 (07:46→18:38)
[2023-05-28] MEDS: hydrALAZINE 10 MG TAB PO SCH ×3 (08:12→20:59)
[2023-05-28] MEDS: Heparin 5,000 UNITS/ML VIAL SC SCH ×3 (08:12→20:59)
[2023-05-28] MEDS: Doxycycline 100 MG CAP PO SCH ×2 (08:12→20:59)
[2023-05-28] MEDS: Isosorbide Dinitrate 5 MG TAB PO SCH ×3 (08:12→20:59)
[2023-05-28] MEDS: Famotidine 20 MG TAB PO SCH (08:12)
[2023-05-28] MEDS: Aspirin 81 mg Enteric Coated Tablet PO SCH (08:12)
[2023-05-28] MEDS: Furosemide 40 MG/4 ML VIAL SLOW IVP SCH (08:13)
[2023-05-28 08:41] LABS: Troponin I 0.049 ng/mL (< 0.028)
[2023-05-28] MEDS ORDERED: GLYCOPYRROLATE/PF 0.2 MG/ML VIAL SLOW IVP PRN (12:06)
[2023-05-28] MEDS: Atorvastatin Calcium 20 MG TAB PO SCH (20:59)
[2023-05-29 05:01] LABS: Hematocrit 25.4 % (42.0-52.0); Hemoglobin 7.7 g/dL (14.0-18.0); Manual Diff?? YES; Mean Corpuscular HGB CONC 30.3 g/dL (32.0-36.0); Mean Corpuscular Hemoglobin 27.3 pg (27.0-31.0); Mean Corpuscular Volume 90.1 fl (78.0-98.0); Mean Platelet Volume 10.7 fL (7.4-10.4); Platelet Count 160 10x3/uL (130-400); RBC Distribution Width 16.8 % (11.5-14.5); Red Blood Cell (RBC) Count 2.82 mill/uL (4.70-6.10); White Blood Cell (WBC) Count 10.3 10x3/uL (4.8-10.8)
[2023-05-29 05:07] LABS: Delete Auto Diff?? YES
[2023-05-29 05:52] LABS: Anisocytosis SLIGHT = 6-15 cells HPF (0-5); Band 2 % (5-11); CellaVision Operator ID lab.abc; Eosinophils 15 % (0-10); Lymphocytes 18 % (21-51); Monocytes 6 % (0-10); Neutrophil 56 % (42-75); Platelet Adequacy Comment Platelets Normal; Total Cell Count 100
[2023-05-29 06:06] LABS: Hemoglobin A1c 6.1 % (4.0-6.0)
[2023-05-29] MEDS: Levothyroxine Sodium 75 MCG TAB PO SCH (06:28)
[2023-05-29 06:57] LABS: Anion Gap 13 mmol/L (10-20); BUN (Urea Nitrogen) 42 mg/dL (8.4-25.7); Calc. Creatinine Clearance 23 mL/min (70-130); Carbon Dioxide 27 mmol/L (23-31); Chloride 102 mmol/L (98-107); Estimated GFR 30; Glucose 65 mg/dL (83-110); Potassium 5.1 mmol/L (3.5-5.1); Sodium 137 mmol/L (136-145)
[2023-05-29] MEDS: Budesonide 0.5 MG/2 ML NEB INH SCH ×2 (07:20→19:15)
[2023-05-29] MEDS: Furosemide 40 MG/4 ML VIAL SLOW IVP SCH ×2 (09:07→14:21)
[2023-05-29] MEDS: hydrALAZINE 10 MG TAB PO SCH ×3 (09:07→21:35)
[2023-05-29] MEDS: Aspirin 81 mg Enteric Coated Tablet PO SCH (09:07)
[2023-05-29] MEDS: Doxycycline 100 MG CAP PO SCH ×2 (09:07→21:36)
[2023-05-29] MEDS: Isosorbide Dinitrate 5 MG TAB PO SCH ×3 (09:07→21:36)
[2023-05-29] MEDS: Heparin 5,000 UNITS/ML VIAL SC SCH (09:07)
[2023-05-29] MEDS: Atorvastatin Calcium 20 MG TAB PO SCH (21:35)
[2023-05-30 05:32] LABS: Anion Gap 10 mmol/L (10-20); BUN (Urea Nitrogen) 48 mg/dL (8.4-25.7); Calc. Creatinine Clearance 20 mL/min (70-130); Carbon Dioxide 27 mmol/L (23-31); Chloride 100 mmol/L (98-107); Estimated GFR 25; Glucose 78 mg/dL (83-110); Potassium 5.4 mmol/L (3.5-5.1); Sodium 132 mmol/L (136-145)
[2023-05-30] MEDS: Furosemide 40 MG/4 ML VIAL SLOW IVP SCH ×2 (05:56→14:09)
[2023-05-30] MEDS: Levothyroxine Sodium 75 MCG TAB PO SCH (05:57)
[2023-05-30 07:35] LABS: #Basophils 0.1 thou/uL (0.0-0.2); #Monocytes 1.1 thou/uL (0.11-0.59); #Neutrophils 4.7 thou/uL (1.40-6.50); %Basophils 0.9 % (0.0-1.0); %Eosinophils 11.2 % (0.0-10.0); %Lymphocytes 24.8 % (21.0-51.0); %Monocytes 11.7 % (0.0-10.0); Hemoglobin 8.3 g/dL (14.0-18.0); Mean Corpuscular HGB CONC 30.7 g/dL (32.0-36.0); Mean Corpuscular Hemoglobin 27.7 pg (27.0-31.0); Mean Platelet Volume 10.5 fL (7.4-10.4); Platelet Count 147 10x3/uL (130-400); RBC Distribution Width 17.1 % (11.5-14.5); White Blood Cell (WBC) Count 9.2 10x3/uL (4.8-10.8)
[2023-05-30] MEDS: Budesonide 0.5 MG/2 ML NEB INH SCH ×2 (07:47→18:50)
[2023-05-30] MEDS: Famotidine 20 MG TAB PO SCH (09:39)
[2023-05-30] MEDS: Doxycycline 100 MG CAP PO SCH ×2 (09:39→21:54)
[2023-05-30] MEDS: hydrALAZINE 10 MG TAB PO SCH ×3 (09:39→21:54)
[2023-05-30] MEDS: Isosorbide Dinitrate 5 MG TAB PO SCH ×3 (09:39→21:55)
[2023-05-30] MEDS: Aspirin 81 mg Enteric Coated Tablet PO SCH (09:40)
[2023-05-30] MEDS: Ipratropium/Albuterol 3 ML NEB NEB PRN (18:49)
[2023-05-30] MEDS: Atorvastatin Calcium 20 MG TAB PO SCH (21:54)
[2023-05-31 05:31] LABS: Anion Gap 10 mmol/L (10-20); BUN (Urea Nitrogen) 50 mg/dL (8.4-25.7); Calc. Creatinine Clearance 21 mL/min (70-130); Calcium 7.9 mg/dL (7.8-10.44); Carbon Dioxide 27 mmol/L (23-31); Chloride 100 mmol/L (98-107); Estimated GFR 26; Glucose 72 mg/dL (83-110); Potassium 5.2 mmol/L (3.5-5.1); Sodium 132 mmol/L (136-145)
[2023-05-31] MEDS: Budesonide 0.5 MG/2 ML NEB INH SCH ×2 (06:43→18:33)
[2023-05-31] MEDS: Furosemide 40 MG/4 ML VIAL SLOW IVP SCH ×2 (06:54→14:40)
[2023-05-31] MEDS: Levothyroxine Sodium 75 MCG TAB PO SCH (06:54)
[2023-05-31] MEDS: Doxycycline 100 MG CAP PO SCH ×2 (08:27→21:08)
[2023-05-31] MEDS: hydrALAZINE 10 MG TAB PO SCH ×3 (08:27→21:08)
[2023-05-31] MEDS: Aspirin 81 mg Enteric Coated Tablet PO SCH (08:28)
[2023-05-31] MEDS: Isosorbide Dinitrate 5 MG TAB PO SCH ×3 (08:28→21:08)
[2023-05-31] MEDS: Ipratropium/Albuterol 3 ML NEB NEB PRN (18:32)
[2023-05-31] MEDS: Atorvastatin Calcium 20 MG TAB PO SCH (21:09)
[2023-06-01] MEDS: Levothyroxine Sodium 75 MCG TAB PO SCH (05:54)
[2023-06-01] MEDS: Furosemide 40 MG/4 ML VIAL SLOW IVP SCH ×2 (05:54→14:54)
[2023-06-01] MEDS: Atorvastatin Calcium 20 MG TAB PO SCH (06:00)
[2023-06-01] MEDS: Budesonide 0.5 MG/2 ML NEB INH SCH ×2 (06:44→19:09)
[2023-06-01] MEDS: Famotidine 20 MG TAB PO SCH (09:39)
[2023-06-01] MEDS: hydrALAZINE 10 MG TAB PO SCH ×3 (09:39→22:16)
[2023-06-01] MEDS: Isosorbide Dinitrate 5 MG TAB PO SCH ×3 (09:39→22:18)
[2023-06-01] MEDS: Doxycycline 100 MG CAP PO SCH ×2 (09:39→22:17)
[2023-06-01] MEDS: Aspirin 81 mg Enteric Coated Tablet PO SCH (09:39)
[2023-06-01 10:15] LABS: Anion Gap 14 mmol/L (10-20); BUN (Urea Nitrogen) 47 mg/dL (8.4-25.7); Calc. Creatinine Clearance 24 mL/min (70-130); Calcium 8.4 mg/dL (7.8-10.44); Carbon Dioxide 23 mmol/L (23-31); Chloride 102 mmol/L (98-107); Estimated GFR 32; Glucose 115 mg/dL (83-110); Potassium 5.2 mmol/L (3.5-5.1); Sodium 134 mmol/L (136-145)
[2023-06-01] MEDS: Ipratropium/Albuterol 3 ML NEB NEB PRN (19:09)
[2023-06-02 04:56] LABS: Anion Gap 9 mmol/L (10-20); BUN (Urea Nitrogen) 49 mg/dL (8.4-25.7); Calc. Creatinine Clearance 26 mL/min (70-130); Calcium 8.1 mg/dL (7.8-10.44); Carbon Dioxide 29 mmol/L (23-31); Chloride 103 mmol/L (98-107); Estimated GFR 36; Glucose 86 mg/dL (83-110); Potassium 5.1 mmol/L (3.5-5.1); Sodium 136 mmol/L (136-145)
[2023-06-02] MEDS: Furosemide 40 MG/4 ML VIAL SLOW IVP SCH (06:27)
[2023-06-02] MEDS: Levothyroxine Sodium 75 MCG TAB PO SCH (06:27)
[2023-06-02] MEDS: Budesonide 0.5 MG/2 ML NEB INH SCH ×2 (07:30→18:10)
[2023-06-02] MEDS: Isosorbide Dinitrate 5 MG TAB PO SCH ×3 (10:07→23:47)
[2023-06-02] MEDS: Aspirin 81 mg Enteric Coated Tablet PO SCH (10:07)
[2023-06-02] MEDS: hydrALAZINE 10 MG TAB PO SCH ×3 (10:07→23:47)
[2023-06-02] MEDS: Furosemide 40 MG TAB PO SCH (14:25)
[2023-06-02] MEDS: Atorvastatin Calcium 20 MG TAB PO SCH (23:56)
[2023-06-03 05:07] LABS: Anion Gap 9 mmol/L (10-20); BUN (Urea Nitrogen) 45 mg/dL (8.4-25.7); Calc. Creatinine Clearance 28 mL/min (70-130); Carbon Dioxide 31 mmol/L (23-31); Chloride 103 mmol/L (98-107); Estimated GFR 39; Glucose 76 mg/dL (83-110); Potassium 5.6 mmol/L (3.5-5.1); Sodium 137 mmol/L (136-145)
[2023-06-03] MEDS: Levothyroxine Sodium 75 MCG TAB PO SCH (07:02)
[2023-06-03] MEDS: Budesonide 0.5 MG/2 ML NEB INH SCH ×2 (07:36→18:24)
[2023-06-03] MEDS: hydrALAZINE 10 MG TAB PO SCH ×3 (08:50→22:36)
[2023-06-03] MEDS: Aspirin 81 mg Enteric Coated Tablet PO SCH (08:50)
[2023-06-03] MEDS: Isosorbide Dinitrate 5 MG TAB PO SCH ×3 (08:51→22:37)
[2023-06-03] MEDS: Furosemide 40 MG TAB PO SCH ×2 (08:51→14:39)
[2023-06-03] MEDS: Famotidine 20 MG TAB PO SCH (08:51)
[2023-06-03] MEDS: Ipratropium/Albuterol 3 ML NEB NEB PRN (18:23)
[2023-06-03] MEDS: Atorvastatin Calcium 20 MG TAB PO SCH (22:37)
[2023-06-04 05:16] LABS: Anion Gap 7 mmol/L (10-20); BUN (Urea Nitrogen) 41 mg/dL (8.4-25.7); Calc. Creatinine Clearance 30 mL/min (70-130); Carbon Dioxide 32 mmol/L (23-31); Chloride 103 mmol/L (98-107); Estimated GFR 41; Glucose 78 mg/dL (83-110); Potassium 5.3 mmol/L (3.5-5.1); Sodium 137 mmol/L (136-145)
[2023-06-04 06:29] VITALS: BMI 24.2
[2023-06-04] MEDS: Levothyroxine Sodium 75 MCG TAB PO SCH (06:33)
[2023-06-04] MEDS: Budesonide 0.5 MG/2 ML NEB INH SCH (06:52)
[2023-06-04] MEDS: Aspirin 81 mg Enteric Coated Tablet PO SCH (08:32)
[2023-06-04] MEDS: Furosemide 40 MG TAB PO SCH ×2 (08:32→14:23)
[2023-06-04] MEDS: Isosorbide Dinitrate 5 MG TAB PO SCH ×2 (08:32→14:23)
[2023-06-04] MEDS: hydrALAZINE 10 MG TAB PO SCH ×2 (08:33→14:23)
[2023-06-04 12:06] VITALS: BP 137/66; TEMP 98.1
== END 2023-06-04 15:37 | disposition hospice, home (50) | DRG 280 ==
LOC: ERS 18:54 → ERHOLD 22:11 → 2NO 22:23
PROVIDERS: ADMIT Student in an Organized Health Care Education/Training Program; ATTEND Internal Medicine
DX: I13.0 Hypertensive heart and chronic kidney disease with heart failure and stage 1 through stage 4 chronic kidney disease, or unspecified chronic kidney disease (principal); I50.23 Acute on chronic systolic (congestive) heart failure; I21.A1 Myocardial infarction type 2; J18.9 Pneumonia, unspecified organism; J96.21 Acute and chronic respiratory failure with hypoxia; J15.4 Pneumonia due to other streptococci; E87.1 Hypo-osmolality and hyponatremia; N17.9 Acute kidney failure, unspecified; Z51.5 Encounter for palliative care; I25.5 Ischemic cardiomyopathy; E78.5 Hyperlipidemia, unspecified; J84.10 Pulmonary fibrosis, unspecified; D63.1 Anemia in chronic kidney disease; N18.30 Chronic kidney disease, stage 3 unspecified; E87.5 Hyperkalemia; I25.10 Atherosclerotic heart disease of native coronary artery without angina pectoris; J47.9 Bronchiectasis, uncomplicated; Z95.1 Presence of aortocoronary bypass graft; Z98.49 Cataract extraction status, unspecified eye; Z79.890 Hormone replacement therapy; Z98.890 Other specified postprocedural states; Z79.82 Long term (current) use of aspirin
CPT/HCPCS: 36415; 36416; 71045; 80048; 80053; 83036; 83735; 83880; 84484; 85025; 87040; 87070; 87205; 93005; 93798; 94644; 96365; 96367; 96375; J0692; J1644; J1650; J1940; J1956; J3370-JW; J3490; J7611; J7620; J7626; Q0162